=== PATIENT | female | born 1965 | race Caucasian/White ===

== ENCOUNTER 2021-06-23 12:02 | Emergency (ER) | payer SELFPAY ==
[~2021-06-23] VITALS: Ht 157 cm; Wt 41.0 kg
--- NOTE | 2021-06-23 12:13 | ED Neurological Problem ---
General Chief Complaint: Neuro-Stroke Like Symptoms Stated Complaint: STROKE SYMPTOMS Source: patient Exam Limitations: no limitations History of Present Illness Date Seen by Provider: Jun 23, 2021 Time Seen by Provider: 12:11 Initial Comments To ER with strokelike symptoms. She is brought to ER by her daughter from home where she lives in [place]. Patient has had ongoing headache and nausea for 1.5 months. She recently had EGD and colonoscopy at [facility]. This morning at 9 AM she got up and went to the bathroom and seemed normal. Daughter went back at about 10 AM and noticed her to have slurred speech. Patient reported to her daughter that she thinks she may have had a stroke. Timing/Duration: 1 week Severity: moderate Associated Symptoms: denies symptoms Allergies and Home Medications Allergies Coded Allergies: No Known Drug Allergies (Unverified , 06/23/21) Patient Home Medication List Home Medication List Reviewed: Yes Review of Systems Review of Systems Constitutional: see HPI; No chills, No fever Eyes: No Symptoms Reported Ears, Nose, Mouth, Throat: no symptoms reported Respiratory: no symptoms reported Cardiovascular: no symptoms reported Genitourinary: no symptoms reported Musculoskeletal: no symptoms reported Skin: no symptoms reported Psychiatric/Neurological: See HPI Endocrine: No Symptoms Reported Hematologic/Lymphatic: No Symptoms Reported Physical Exam Vital Signs Vital Signs - First Documented 06/23/21 12:03 Temp 36.1 Pulse 92 Resp 16 B/P (MAP) 164/89 (114) Pulse Ox 99 O2 Delivery Room Air Capillary Refill : Height, Weight, BMI Height: '" Weight: lbs. oz. kg; BMI Method: General Appearance: WD/WN, no apparent distress, thin (Chronically ill appears much older than stated age) HEENT: PERRL/EOMI, normal ENT inspection Neck: non-tender, full range of motion Respiratory: no respiratory distress, no accessory muscle use Cardiovascular: regular rate, rhythm, no murmur Gastrointestinal: normal bowel sounds, non tender, soft Extremities: normal range of motion, non-tender Neurologic/Psychiatric: alert, normal mood/affect, oriented x 3 Crainal Nerves: normal hearing, normal speech, PERRL Coordination/Gait: normal finger to nose Skin: normal color, warm/dry She makes poor eye contact but extraocular muscles are intact. She has more of a blank stare looking across the room and does not track me during conversation. However when asked to follow my finger she is able to do that. Stroke Onset of Symptoms Date of Onset of Symptoms: Jun 23, 2021 Time of Symptom Onset: 12:13 Onset of Symptoms: Yes Symptoms onset unknown: Yes NIH Stroke Scale Assessment Select: Initial Level of Consciousness: 0=Alert (0), Level of Consciousness- Questions: 0=Answers both month/age (0), LOC Commands: 0=Performs both tasks (0), Gaze: Normal (0), Visual Park: 0=No visual loss (0), Facial Movement (Facial Paresis): 2=Partial paralysis (2), Motor Function-Arms Right: 0=No drift (0), Motor Function-Arms Left: 0=No drift (0), Motor Function-Legs Right: 0=No drift (0), Motor Function-Legs Left: 0=No drift (0), Limb Ataxia: 0=Absent (0), Sensory: 0=Normal:no loss (0), Best Language: 0=No aphasia (0), Dysarthria: 1=Mild to moderate loss (1), Extinction & Inattention: 0=No abnormality (0), Total: 3 Progress/Results/Core Measures Results/Orders Lab Results Laboratory Tests Test 06/23/21 12:09 06/23/21 12:58 Range/Units White Blood Count 9.1 4.3-11.0 10^3/uL Red Blood Count 4.18 3.80-5.11 10^6/uL Hemoglobin 12.9 11.5-16.0 g/dL Hematocrit 39 35-52 % Mean Corpuscular Volume 92 80-99 fL Mean Corpuscular Hemoglobin 31 25-34 pg Mean Corpuscular Hemoglobin Concent 33 32-36 g/dL Red Cell Distribution Width 13.1 10.0-14.5 % Platelet Count 150 130-400 10^3/uL Mean Platelet Volume 9.5 9.0-12.2 fL Immature Granulocyte % (Auto) 0 % Neutrophils (%) (Auto) 65 42-75 % Lymphocytes (%) (Auto) 23 12-44 % Monocytes (%) (Auto) 8 0-12 % Eosinophils (%) (Auto) 3 0-10 % Basophils (%) (Auto) 1 0-10 % Neutrophils # (Auto) 5.9 1.8-7.8 10^3/uL Lymphocytes # (Auto) 2.1 1.0-4.0 10^3/uL Monocytes # (Auto) 0.7 0.0-1.0 10^3/uL Eosinophils # (Auto) 0.3 0.0-0.3 10^3/uL Basophils # (Auto) 0.1 0.0-0.1 10^3/uL Immature Granulocyte # (Auto) 0.0 0.0-0.1 10^3/uL Prothrombin Time 16.2 H 12.2-14.7 SEC INR Comment 1.3 0.8-1.4 Activated Partial Thromboplast Time 32 24-35 SEC D-Dimer > 20.00 H 0.00-0.49 UG/ML Sodium Level 144 135-145 MMOL/L Potassium Level 4.1 3.6-5.0 MMOL/L Chloride Level 103 98-107 MMOL/L Carbon Dioxide Level 28 21-32 MMOL/L Anion Gap 13 5-14 MMOL/L Blood Urea Nitrogen 13 7-18 MG/DL Creatinine 0.72 0.60-1.30 MG/DL Estimat Glomerular Filtration Rate 83 BUN/Creatinine Ratio 18 Glucose Level 94 70-105 MG/DL Calcium Level 9.4 8.5-10.1 MG/DL Corrected Calcium 9.2 8.5-10.1 MG/DL Total Bilirubin 0.6 0.1-1.0 MG/DL Aspartate Amino Transf (AST/SGOT) 22 5-34 U/L Alanine Aminotransferase (ALT/SGPT) 16 0-55 U/L Alkaline Phosphatase 74 40-136 U/L Troponin I 3.150 *H <0.028 NG/ML Total Protein 6.9 6.4-8.2 GM/DL Albumin 4.3 3.2-4.5 GM/DL Salicylates Level < 5.0 L 5.0-20.0 MG/DL Acetaminophen Level < 10 L 10-30 UG/ML Serum Alcohol < 10 <10 MG/DL Urine Color YELLOW Urine Clarity SL CLOUDY Urine pH 6.5 5-9 Urine Specific Greig <=1.005 1.016-1.022 Urine Protein NEGATIVE NEGATIVE Urine Glucose (UA) NEGATIVE NEGATIVE Urine Ketones NEGATIVE NEGATIVE Urine Nitrite NEGATIVE NEGATIVE Urine Bilirubin NEGATIVE NEGATIVE Urine Urobilinogen 0.2 < = 1.0 MG/DL Urine Leukocyte Esterase 2+ H NEGATIVE Urine RBC (Auto) TRACE-I NEGATIVE Urine RBC RARE /HPF Urine WBC 10-25 H /HPF Urine Squamous Epithelial Cells 2-5 /HPF Urine Crystals NONE /LPF Urine Bacteria NEGATIVE /HPF Urine Casts NONE /LPF Urine Mucus NEGATIVE /LPF Urine Trichomonas FEW H /HPF Urine Culture Indicated YES Urine Opiates Screen NEGATIVE NEGATIVE Urine Oxycodone Screen NEGATIVE NEGATIVE Urine Methadone Screen NEGATIVE NEGATIVE Urine Propoxyphene Screen NEGATIVE NEGATIVE Urine Barbiturates Screen NEGATIVE NEGATIVE Ur Tricyclic Antidepressants Screen NEGATIVE NEGATIVE Urine Phencyclidine Screen NEGATIVE NEGATIVE Urine Amphetamines Screen NEGATIVE NEGATIVE Urine Methamphetamines Screen NEGATIVE NEGATIVE Urine Benzodiazepines Screen NEGATIVE NEGATIVE Urine Cocaine Screen NEGATIVE NEGATIVE Urine Cannabinoids Screen POSITIVE H NEGATIVE My Orders Orders - SPENSER CM APRN Cbc With Automated Diff (06/23/21 12:14) Protime With Inr (06/23/21 12:14) Partial Thromboplastin Time (06/23/21 12:14) Comprehensive Metabolic Panel (06/23/21 12:14) Fibrin Degradation Products (06/23/21 12:14) Troponin I (06/23/21 12:14) Ua Culture If Indicated (06/23/21 12:14) Chest 1 View, Ap/Pa Only (06/23/21 12:14) Ekg Tracing (06/23/21 12:14) Nothing By Mouth (06/23/21 Lunch) Accucheck Stat ONCE (06/23/21 12:14) Ed Iv/Invasive Line Start (06/23/21 12:14) Ed Iv/Invasive Line Start (06/23/21 12:14) Vital Signs Stroke Patient Q15M (06/23/21 12:14) Ct Head Wo-R/O Stroke (06/23/21 12:14) O2 (06/23/21 12:14) Intake & Output 06,14,22 (06/23/21 12:14) Monitor-Rhythm Ecg Trace Only (06/23/21 12:14) Dysphagia Screening Tool (06/23/21 12:14) Post Thrombolytic Adminstratio (06/23/21 12:14) Lipid Panel (06/24/21 06:00) Ct Angio Head/Neck (06/23/21 12:14) Alcohol (06/23/21 12:14) Drug Screen Stat (Urine) (06/23/21 12:14) Salicylate (06/23/21 12:14) Acetaminophen (06/23/21 12:14) Iohexol Injection (Omnipaque 350 Mg/Ml 1 (06/23/21 12:45) Received Contrast (Hold Metformin- Contr (06/23/21 12:45) Ekg Tracing (06/23/21 12:43) Urine Culture (06/23/21 12:58) Fentanyl Inj (Sublimaze Injection) (06/23/21 14:00) Ondansetron Injection (Zofran Injectio (06/23/21 16:30) Medications Given in ED Current Medications Medications Dose Ordered Sig/Peace Route Start Time Stop Time Status Last Admin Dose Admin Fentanyl Citrate 25 mcg ONCE PRN IVP 06/23/21 14:00 06/23/21 14:10 25 MCG Ondansetron HCl 4 mg ONCE ONCE IVP 06/23/21 16:30 06/23/21 16:31 DC 06/23/21 16:31 4 MG Vital Signs/I&O 06/23/21 12:03 Temp 36.1 Pulse 92 Resp 16 B/P (MAP) 164/89 (114) Pulse Ox 99 O2 Delivery Room Air Diagnostic Imaging Diagonstic Imaging: CT Comments NAME: TAMIE BHANDARI [facility] REC#: [id number] PT STATUS: REG ER : 1965 PHYSICIAN: SPENSER CM APRN ADMIT DATE: 06/23/21/ER Draft Date of Exam:06/23/21 CT HEAD WO-R/O STROKE PROCEDURE: CT head wo r/o stroke. TECHNIQUE: Multiple contiguous axial images were obtained through the brain without the use of intravenous contrast. Auto Exposure Controls were utilized during the CT exam to meet ALARA standards for radiation dose reduction. INDICATION: Neurologic deficit. Slurred speech. Not acting right. COMPARISON: None. FINDINGS: Scattered regions of low attenuation, primarily in the white matter, greatest in the right parietal lobe, could also involve the left frontal and left occipital lobes. No evidence of intracranial hemorrhage. No hydrocephalus or extra-axial fluid collections. Osseous structures are intact. Paranasal sinuses and mastoids are unremarkable. IMPRESSION: Scattered regions of low attenuation in the supratentorial bilateral white matter are age indeterminate. Differential considerations would include but are not limited to ischemic change, demyelinating disease and intracranial metastases. The largest of these regions is in the right parietal lobe. No evidence of intracranial hemorrhage. Findings discussed with Spenser Cm APRN, at 12:50 PM on 06/23/2021. Dictated on workstation # [id number] Dict: 06/23/21 1249 Trans: 06/23/21 1316 [facility] [id number] Interpreted by: ANIA FRAGOSO MD Electronically signed by: NAME: TAMIE BHANDARI [facility] REC#: [id number] PT STATUS: REG ER : 1965 PHYSICIAN: SPENSER CM APRN ADMIT DATE: 06/23/21/ER Draft Date of Exam:06/23/21 CT ANGIO HEAD/NECK PROCEDURE: CT angiography of the head and CT angiography of the neck with and without contrast. TECHNIQUE: Contiguous noncontrast images were obtained from the skull base through the vertex. After intravenous contrast administration, helical CT angiography of the neck was performed. Source data was reformatted into 3D MIP projections. Delayed post contrast acquisition was also obtained. Auto Exposure Controls were utilized during the CT exam to meet ALARA standards for radiation dose reduction. INDICATION: Stroke. Slurred speech. Altered mental status. Left-sided weakness. COMPARISON: CT head without contrast also performed today. FINDINGS: There remains no evidence of a large hemorrhage or extra-axial fluid collection on the postcontrast imaging. There does appear to be some increased perfusion about the low-attenuation in the right parietal lobe. Additional low-attenuation changes scattered throughout the supratentorial white matter bilaterally remain age indeterminate. CTA demonstrates a conventional aortic arch. The basilar, bilateral vertebral, common carotid, internal carotid, anterior cerebral, middle cerebral and posterior cerebral arteries are widely patent without evidence of aneurysm or dissection. No large vessel occlusion. The dural venous sinuses are normally opacified. Normal alignment of the cervical spine. No acute osseous findings. The visualized paravertebral soft tissues are unremarkable. Emphysematous changes in the lung apices. There is possible mass or lymphadenopathy partially visualized in the upper left mediastinum measuring at least 2.1 cm. There is also lymphadenopathy deep to the left clavicle measuring up to 1.4 cm in short axis dimension. Lymph node in the left axilla is partially visualized but measures at least 2.0 cm in short axis dimension. IMPRESSION: 1. No high-grade narrowing, aneurysm or dissection involving the major arteries in the head and neck. 2. Partially visualized upper mediastinal mass or lymphadenopathy. There is also left axillary and supraclavicular lymphadenopathy. Findings are suspicious for a metastatic process. Findings discussed with Spenser Cm APRN, at 12:55 PM on 06/23/2021. Dictated on workstation # [id number] Dict: 06/23/21 1255 Trans: 06/23/21 1320 [facility] [id number] Interpreted by: ANIA FRAGOSO MD Electronically signed by: [facility] [id number] PT STATUS: REG ER : 1965 PHYSICIAN: SPENSER CM APRN ADMIT DATE: 06/23/21/ER Draft Date of Exam:06/23/21 CHEST 1 VIEW, AP/PA ONLY INDICATION: Stroke EXAMINATION: Chest 06/23/2021 FINDINGS: The heart is enlarged. Mild pulmonary vascular congestion is noted. Lungs clear. No infiltrates or effusions. No pneumothorax. IMPRESSION: 1. Cardiomegaly with mild pulmonary vascular congestion. Dictated on workstation # [id number] Dict: 06/23/21 1319 Trans: 06/23/211320 [facility] [id number] Interpreted by: NEO TAYLOR MD Electronically signed by: Departure Communication (Admissions) Family Conversation [facility] [id number] PT STATUS: REG ER : 1965 PHYSICIAN: SPENSER CM APRN ADMIT DATE: 06/23/21/ER Draft Date of Exam:06/23/21 CHEST 1 VIEW, AP/PA ONLY INDICATION: Stroke EXAMINATION: Chest 06/23/2021 FINDINGS: The heart is enlarged. Mild pulmonary vascular congestion is noted. Lungs clear. No infiltrates or effusions. No pneumothorax. IMPRESSION: 1. Cardiomegaly with mild pulmonary vascular congestion. Dictated on workstation # [id number] Dict: 06/23/21 1319 Trans: 06/23/21 1321 [facility] [id number] Interpreted by: NEO TAYLOR MD Electronically signed by: 1320-Discussed with Dr Hernández from stroke center, agree with withholding TPA given concern for this being metastatic disease rather than ischemia and NIH of only 3. Her troponin is elevated at 3, she does not have chest pain or shortness of breath, her EKG does not have any ST segment changes. Her EKG shows sinus rhythm 83, no ST segment changes no ectopy normal intervals there is T wave inversion in lead III only. No chest pain no shortness of breath. 1509-Dr. Mason James at the [facility] has accepted the patient. Awaiting bed assignment. I have spoken with [facility], [facility] out of [facility]. None of these have capability to transfer the patient. Impression Primary Impression: intracranial metastatic disease Disposition: XFER SHT-TRM HOSP Condition: Stable Transfer Transfer Reason: Exceeds level of care Time Spoke to Accepting Phy: 14:30 SPENSER CM [employer] PROJECT ENGINEER Jun 23, 2021 12:13
[2021-06-23 12:23] LABS: BASOPHILS # (AUTO) 0.1 10^3/uL (0.0-0.1); BASOPHILS % (AUTO) 1 % (0-10); EOSINOPHILS # (AUTO) 0.3 10^3/uL (0.0-0.3); EOSINOPHILS % (AUTO) 3 % (0-10); HEMATOCRIT 39 % (35-52); HEMOGLOBIN 12.9 g/dL (11.5-16.0); LYMPHOCYTES # (AUTO) 2.1 10^3/uL (1.0-4.0); LYMPHOCYTES % (AUTO) 23 % (12-44); MEAN CORPUSCULAR HEMOGLOBIN 31 pg (25-34); MEAN CORPUSCULAR HGB CONC 33 g/dL (32-36); MEAN CORPUSCULAR VOLUME 92 fL (80-99); MEAN PLATELET VOLUME 9.5 fL (9.0-12.2); MONOCYTES # (AUTO) 0.7 10^3/uL (0.0-1.0); MONOCYTES % (AUTO) 8 % (0-12); NEUTROPHILS # (AUTO) 5.9 10^3/uL (1.8-7.8); NEUTROPHILS % (AUTO) 65 % (42-75); PLATELET COUNT 150 10^3/uL (130-400); WHITE BLOOD COUNT 9.1 10^3/uL (4.3-11.0)
[2021-06-23 12:26] LABS: ALBUMIN 4.3 GM/DL (3.2-4.5); CHLORIDE 103 MMOL/L (98-107); POTASSIUM 4.1 MMOL/L (3.6-5.0); SODIUM 144 MMOL/L (135-145)
[2021-06-23 12:27] LABS: CALCIUM 9.4 MG/DL (8.5-10.1)
[2021-06-23 12:28] LABS: GLUCOSE 94 MG/DL (70-105)
[2021-06-23 12:29] LABS: CARBON DIOXIDE 28 MMOL/L (21-32); TOTAL PROTEIN 6.9 GM/DL (6.4-8.2)
[2021-06-23 12:30] LABS: BILIRUBIN,TOTAL 0.6 MG/DL (0.1-1.0)
[2021-06-23 12:32] LABS: ALKALINE PHOSPHATASE 74 U/L (40-136); CREATININE SERUM 0.72 MG/DL (0.60-1.30); GFR ESTIMATED 83
[2021-06-23 12:33] LABS: ACETAMINOPHEN < 10 UG/ML (10-30)
[2021-06-23 12:34] LABS: BUN/CREATININE RATIO 18
[2021-06-23 12:35] LABS: ALANINE AMINOTRANSFERASE 16 U/L (0-55); SALICYLATE < 5.0 MG/DL (5.0-20.0)
[2021-06-23 12:44] LABS: FIBRIN DEGRADATION PRODUCTS > 20.00 UG/ML (0.00-0.49); INR 1.3 (0.8-1.4); PARTIAL THROMBOPLASTIN TIME 32 SEC (24-35); PROTHROMBIN TIME PATIENT 16.2 SEC (12.2-14.7)
[2021-06-23] MEDS ORDERED: IOHEXOL 350 MG/ML 100 ML (OMNIPAQUE 350) VIAL IV ONE (12:45)
[2021-06-23] MEDS ORDERED: HOLD METFORMIN - RECEIVED CONTRAST 20 ML VIAL IV SCH (12:45)
--- NOTE | 2021-06-23 13:16 | Diagnostic Imaging Report ---
PROCEDURE: CT head wo r/o stroke. TECHNIQUE: Multiple contiguous axial images were obtained through the brain without the use of intravenous contrast. Auto Exposure Controls were utilized during the CT exam to meet ALARA standards for radiation dose reduction. INDICATION: Neurologic deficit. Slurred speech. Not acting right. COMPARISON: None. FINDINGS: Scattered regions of low attenuation, primarily in the white matter, greatest in the right parietal lobe, could also involve the left frontal and left occipital lobes. No evidence of intracranial hemorrhage. No hydrocephalus or extra-axial fluid collections. Osseous structures are intact. Paranasal sinuses and mastoids are unremarkable. IMPRESSION: Scattered regions of low attenuation in the supratentorial bilateral white matter are age indeterminate. Differential considerations would include but are not limited to ischemic change, demyelinating disease and intracranial metastases. The largest of these regions is in the right parietal lobe. No evidence of intracranial hemorrhage. Findings discussed with Waylon Cm APRN, at 12:50 PM on 06/23/2021. Dictated by: Dictated on workstation # [id number]
[2021-06-23 13:19] LABS: BILIRUBIN,URINE NEGATIVE (NEGATIVE); CLARITY,URINE SL CLOUDY; COLOR,URINE YELLOW; GLUCOSE, URINE (UA) NEGATIVE (NEGATIVE); KETONES,URINE NEGATIVE (NEGATIVE); LEUKOCYTE ESTERASE ,URINE 2+ (NEGATIVE); NITRITE,URINE NEGATIVE (NEGATIVE); PH,URINE 6.5 (5-9); PROTEIN,URINE NEGATIVE (NEGATIVE)
--- NOTE | 2021-06-23 13:20 | Diagnostic Imaging Report ---
PROCEDURE: CT angiography of the head and CT angiography of the neck with and without contrast. TECHNIQUE: Contiguous noncontrast images were obtained from the skull base through the vertex. After intravenous contrast administration, helical CT angiography of the neck was performed. Source data was reformatted into 3D MIP projections. Delayed post contrast acquisition was also obtained. Auto Exposure Controls were utilized during the CT exam to meet ALARA standards for radiation dose reduction. INDICATION: Stroke. Slurred speech. Altered mental status. Left-sided weakness. COMPARISON: CT head without contrast also performed today. FINDINGS: There remains no evidence of a large hemorrhage or extra-axial fluid collection on the postcontrast imaging. There does appear to be some increased perfusion about the low-attenuation in the right parietal lobe. Additional low-attenuation changes scattered throughout the supratentorial white matter bilaterally remain age indeterminate. CTA demonstrates a conventional aortic arch. The basilar, bilateral vertebral, common carotid, internal carotid, anterior cerebral, middle cerebral and posterior cerebral arteries are widely patent without evidence of aneurysm or dissection. No large vessel occlusion. The dural venous sinuses are normally opacified. Normal alignment of the cervical spine. No acute osseous findings. The visualized paravertebral soft tissues are unremarkable. Emphysematous changes in the lung apices. There is possible mass or lymphadenopathy partially visualized in the upper left mediastinum measuring at least 2.1 cm. There is also lymphadenopathy deep to the left clavicle measuring up to 1.4 cm in short axis dimension. Lymph node in the left axilla is partially visualized but measures at least 2.0 cm in short axis dimension. IMPRESSION: 1. No high-grade narrowing, aneurysm or dissection involving the major arteries in the head and neck. 2. Partially visualized upper mediastinal mass or lymphadenopathy. There is also left axillary and supraclavicular lymphadenopathy. Findings are suspicious for a metastatic process. Findings discussed with Waylon Cm APRN, at 12:55 PM on 06/23/2021. Dictated by: Dictated on workstation # [id number]
--- NOTE | 2021-06-23 13:21 | Diagnostic Imaging Report ---
INDICATION: Stroke EXAMINATION: Chest 06/23/2021 FINDINGS: The heart is enlarged. Mild pulmonary vascular congestion is noted. Lungs clear. No infiltrates or effusions. No pneumothorax. IMPRESSION: 1. Cardiomegaly with mild pulmonary vascular congestion. Dictated by: Dictated on workstation # [id number]
[2021-06-23 13:29] LABS: RBC,URINE RARE /HPF
[2021-06-23 13:30] LABS: BACTERIA,URINE NEGATIVE /HPF; TRICHOMONAS,URINE FEW /HPF
[2021-06-23 13:33] LABS: AMPHETAMINE SCREEN, URINE NEGATIVE (NEGATIVE); BARBITURATE SCREEN URINE NEGATIVE (NEGATIVE); BENZODIAZEPINES SCREEN URINE NEGATIVE (NEGATIVE); CANNABINOID SCREEN, URINE POSITIVE (NEGATIVE); COCAINE SCREEN URINE NEGATIVE (NEGATIVE); METHADONE STAT NEGATIVE (NEGATIVE); METHAMPHETAMINE SCREEN URINE S NEGATIVE (NEGATIVE); OPIATE SCREEN URINE NEGATIVE (NEGATIVE); OXYCODONE STAT NEGATIVE (NEGATIVE); PROPOXYPHENE STAT NEGATIVE (NEGATIVE); TRICYCLIC ANTIDEPRESSANTS SCRE NEGATIVE (NEGATIVE)
[2021-06-23] MEDS: fentaNYL INJ 100 MCG/2 ML AMP IVP PRN ×2 (14:10→17:47)
[2021-06-23] MEDS ORDERED: ONDANSETRON 4 MG/2 ML (SDV) Z0FRAN IVP ONE ×2 (16:30→17:45)
[2021-06-23] MEDS ORDERED: fentaNYL INJ 100 MCG/2 ML AMP IVP PRN (17:45)
[2021-06-23 18:44] VITALS: BP 131/78
--- OUTSIDE RECORDS SUMMARY | 2021-06-25 07:26 | XMS REPORT | Encounter Summary ---
Author Author [facility] Address Unknown Phone Unavailable Care Team Providers Care Blowing Weasand Name Role Phone No Pcp, Na PCP Unavailable Encounter Details Care Team Description Date Type Department 06/23/2021 Travel Social History Date Tobacco Use Types Packs/Day Years Used Current Every Day Smoker Cigarettes 1 15 Smokeless Tobacco: Never Used Drinks/Week oz/Week Comments Alcohol Use 3 Cans of beer 3.0 normally drinks 1 beer/day, but has not consumed any in 3-4 days Yes Sex Assigned at Date Recorded Not on file Date Recorded COVID-19 Exposure Response 06/23/2021 3:07 PM CDT In the last month, have you been in contact with No / Unsure someone who was confirmed or suspected to have Coronavirus / COVID-19? documented as of this encounter Plan of Treatment Not on filedocumented as of this encounter Goals Goal Patient Associated Recent Progress Patient-Stat Aut hor Goal Type Problems ed? [facility] No Francia Vazquez, RN documented as of this encounter Visit Diagnoses Not on filedocumented in this encounter Additional Health Concerns Assessment Noted Time A fall risk assessment has been completed for the pat ient 06/23/2021 7:54 PM CDT documented as of this encounter
--- OUTSIDE RECORDS SUMMARY | 2021-06-25 07:26 | XMS REPORT | Clinical Summary ---
Author Author [facility] Organization [facility] Address Unknown Phone Unavailable Care Team Providers Care Kettle Girl Name Role Phone No Pcp, Na PCP Unavailable Source Comments Some departments are not documenting in the electronic medical record. If you d o not see the information that you expected, contact Release of Information in [facility] [employer] Information Management department at [phone] for further assistan ce in locating additional records.[facility] Allergies No Known Active Allergies Medications No known medications Active Problems Problem Noted Date Severe malnutrition 06/24/2021 Metastatic cancer to brain 06/23/2021 Encounters Care Team Description Date Type Specialty Mason James MD Mohamad Alahmad, MD Julio Rendon Sidra, MD Digiacomo, Nola Thomason MD Metastatic cancer to brain (HCC) 06/23/2021 Hospital Oncology Encounter Arrived 06/23/2021 Hospital Radiology Encounter Arrived 06/23/2021 Hospital Radiology Encounter 06/23/2021 Travel from Last 3 Months Medical History Medical History Date Comments Smoker Family History Medical History Relation Name Comments Cancer-Lung Mother Relation Name Status Comments Mother Social History Date Tobacco Use Types Packs/Day Years Used Current Every Day Smoker Cigarettes 1 15 Smokeless Tobacco: Never Used Tobacco Cessation: Ready to Quit: Yes; C ounseling Given: Yes Drinks/Week oz/Week Comments Alcohol Use 3 Cans [...] or suspected to have Coronavirus / COVID-19? Last Filed Vital Signs Reading Time Taken Comments Vital Sign 134/81 06/25/2021 7:22 AM CDT Blood Pressure 94 06/25/2021 7:22 AM CDT Pulse 36.9 C (98.4 F) 06/25/2021 7:22 AM CDT Temperature - - Respiratory Rate 95% 06/25/2021 7:22 AM CDT Oxygen Saturation - - Inhaled Oxygen Concentration 49 kg (108 lb 0.4 oz) 06/23/2021 7:54 PM CDT Weight 157.5 cm (5' 2") 06/23/2021 7:54 PM CDT Height 19.76 06/23/2021 7:54 PM CDT Body Mass Index Plan of Treatment Health Maintenance Due Date Last Done Comments DTAP/TDAP VACCINES (1 - 1981 Tdap) PHYSICAL (COMPREHENSIVE) 1981 EXAM CERVICAL CANCER SCREENING 1984 BREAST CANCER SCREENING 2003 COLORECTAL CANCER 2013 SCREENING SHINGLES RECOMBINANT 2013 VACCINE (1 of 2) INFLUENZA VACCINE 08/17/2021 HEPATITIS C SCREENING Completed 06/23/2021 HIV SCREENING Completed 06/23/2021 Goals Goal Patient Associated Recent Progress Patient-Stat Aut hor Goal Type Problems ed? [facility] Francia Marinelli RN Procedures * The patient is currently admitted. The information in this section might not be complete until the patient is discharged. Comments Procedure Name Priority Date/Time Associated Diag nosis POC GLUCOSE 06/25/2021 7:22 AM CDT POC GLUCOSE 06/25/2021 6:57 AM CDT MAGNESIUM 06/25/2021 2:00 AM CDT COMPREHENSIVE METABOLIC 06/25/2021 PANEL 2:00 AM CDT TROPONIN-I Routine 06/25/2021 2:00 AM CDT HC TROPONIN-I Routine 06/24/2021 5:35 PM CDT TROPONIN-I Routine 06/24/2021 11:11 AM CDT HC TROPONIN-I Routine 06/24/2021 9:47 AM CDT URINALYSIS, MICROSCOPIC Routine 06/24/2021 5:29 AM CDT HC URINALYSIS, AUTO W Routine 06/24/2021 MICRO 5:29 AM CDT HC PHENCYCLIDINES; QUAL Routine 06/24/2021 5:29 AM CDT HC OPIATES; QUAL Routine 06/24/2021 5:29 AM CDT HC COCAINE; QUAL Routine 06/24/2021 5:29 AM CDT HC CANNABINOIDS; QUAL Routine 06/24/2021 5:29 AM CDT HC BENZODIAZEPINES, QUAL Routine 06/24/2021 5:29 AM CDT HC BARBITURATES Routine 06/24/2021 5:29 AM CDT HC AMPHETAMINES QUAL, Routine 06/24/2021 URINE 5:29 AM CDT HC CALCIUM IONIZED Specimen 06/24/2021 in Lab 5:20 AM CDT HC FIBRINOGEN Routine 06/24/2021 4:47 AM CDT TROPONIN-I Routine 06/24/2021 4:47 AM CDT HC MAGNESIUM Routine 06/24/2021 4:47 AM CDT HC COMPREHENSIVE Routine 06/24/2021 METABOLIC PANEL 4:47 AM CDT HC CBC W/ AUTOMATED DIFF Routine 06/24/2021 4:47 AM CDT CTA CHEST WO/W STAT 06/24/2021 CONTRAST+POST P 1:[address] ABD/PELV W CONTRAST AGNES 06/24/2021 1:19 AM CDT CULTURE-BLOOD STAT 06/24/2021 W/SENSITIVITY 12:52 AM CDT CULTURE-BLOOD STAT 06/24/2021 W/SENSITIVITY 12:43 AM CDT MRI HEAD WO/W CONTRAST STAT 06/23/2021 10:49 PM CDT HC PTH 06/23/2021 9:58 PM CDT HC PROLCALCITONIN (PROCA) 06/23/2021 9:58 PM CDT HC LIPASE 06/23/2021 9:58 PM CDT HC LD(LDH;LACTIC 06/23/2021 DEHYDROGENASE) 9:58 PM CDT HC LACTIC ACID(LACTATE) 06/23/2021 9:58 PM CDT HC HIV 1/2 SHOLA AG SCREEN 06/23/2021 9:58 PM CDT HC C-REACTIVE PROTEIN 06/23/2021 (CRP) 9:58 PM CDT HC BETA HYDROXYBUTYRATE 06/23/2021 9:58 PM CDT HC ACUTE HEPATITIS PANEL 06/23/2021 9:58 PM CDT C4 COMPLEMENT 4 STAT 06/23/2021 9:58 PM CDT HC C3(COMPLEMENT 3) STAT 06/23/2021 9:58 PM CDT HC VITAMIN B12 STAT 06/23/2021 9:58 PM CDT HC D-DIMER STAT 06/23/2021 9:58 PM CDT HC FIBRINOGEN STAT 06/23/2021 9:58 PM CDT HC PHOSPHOROUS, SERUM STAT 06/23/2021 9:58 PM CDT HC HEMOGLOBIN A1C STAT 06/23/2021 9:58 PM CDT HC STAT 06/23/2021 LIPID-5:CHOL/TRG/HDL/LDL+ 9:58 PM CDT VLDL HC TSH SCREEN STAT 06/23/2021 9:58 PM CDT HC TROPONIN-I STAT 06/23/2021 9:58 PM CDT HC COMPREHENSIVE STAT 06/23/2021 METABOLIC PANEL 9:58 PM CDT HC PTT(APTT) STAT 06/23/2021 9:58 PM CDT HC PT(INR) STAT 06/23/2021 9:58 PM CDT HC CBC W/ AUTOMATED DIFF STAT 06/23/2021 9:58 PM CDT HC MRSA PNEUMONIA SCREEN Routine 06/23/2021 9:15 PM CDT COVID-19 (SARS-COV-2) PCR STAT 06/23/2021 9:15 PM CDT CTA HEAD EXTERNAL IMAGING Routine 06/23/2021 2:[address] HEAD EXTERNAL IMAGING Routine 06/23/2021 2:38 PM CDT TELEMETRY STRIPS-SCAN 06/23/2021 12:00 AM CDT TELEMETRY STRIPS-SCAN 06/23/2021 12:00 AM CDT TELEMETRY STRIPS-SCAN 06/23/2021 12:00 AM CDT TELEMETRY STRIPS-SCAN 06/23/2021 12:00 AM CDT TELEMETRY STRIPS-SCAN 06/23/2021 12:00 AM CDT TELEMETRY STRIPS-SCAN 06/23/2021 12:00 AM CDT TELEMETRY STRIPS-SCAN 06/23/2021 12:00 AM CDT from Last 3 Months Results * POC GLUCOSE (06/25/2021 7:22 AM CDT) Only the most recent of 2 results within the time period is included. Glucose, POC 129 (H) 70 - 100 MG/DL [facility] Specimen Performing Organization Address City/[facility]/ZIP Code P chloé Number [facility] [address] [place] [address] * TROPONIN-I (06/25/2021 2:00 AM CDT) Only the most recent of 6 results within the time period is included. Troponin-I 1.02 (H) 0.0 - 0.05 NG/ML [facility] Specimen Blood Performing Organization Address City/[facility] P chloé Number [facility] [address] [place] [address] * MAGNESIUM (06/25/2021 2:00 AM CDT) Only the most recent of 2 results within the time period is included. Magnesium 2.0 1.6 - 2.6 mg/dL [facility] Specimen Performing Organization Address [facility] P chloé Number [facility] [address] [place] [address] * COMPREHENSIVE METABOLIC PANEL (06/25/2021 2:00 AM CDT) Only the most recent of 3 results within the time period is included. Sodium 138 137 - 147 MMOL/L [facility] Potassium 4.2 3.5 - 5.1 MMOL/L [facility] Chloride 100 98 - 110 MMOL/L [facility] Glucose 55 (L) 70 - 100 MG/DL [facility] Blood Urea 19 7 - 25 MG/DL [facility] Nitrogen Creatinine 0.67 0.4 - 1.00 MG/DL [facility] Calcium 9.1 8.5 - 10.6 MG/DL [facility] Total Protein 6.5 6.0 - 8.0 G/DL [facility] Total Bilirubin 1.4 (H) 0.3 - 1.2 MG/DL [facility] Albumin 4.0 3.5 - 5.0 G/DL [facility] Alk Phosphatase 65 25 - 110 U/L [facility] AST (SGOT) 25 7 - 40 U/L [facility] CO2 23 21 - 30 MMOL/L [facility] ALT (SGPT) 12 7 - 56 U/L [facility] Anion Gap 15 (H) 3 - 12 [facility] eGFR Non >60 >60 mL/min [facility] Comment: [place] The eGFR is not validated f or use in drug dosing adjustments. Continue to use estimated creatinine clearance per dosing reference text. Please contact the Clinical Pharmacist for questions. eGFR >60 >60 mL/min [facility] [place] Comment: The eGFR is not validated for use in drug dosing adjustments. Continue to use estimated creatinine clearance per dosing reference text. Please contact the Clinical Pharmacist for questions. Specimen Performing Organization Address [facility] P chloé Number [facility] [address] [place] [address] * URINALYSIS, MICROSCOPIC (06/24/2021 5:29 AM CDT) WBCs,UA 20-50 0 - 2 /HPF [facility] RBCs,UA PACKED 0 - 3 /HPF [facility] MucousUA TRACE [facility] Squamous 0-2 0 - 5 [facility] Epithelial Cells Specimen Urine - Urine Performing Organization Address [facility] P chloé Number [facility] [address] [place] [address] * URINALYSIS DIPSTICK (06/24/2021 5:29 AM CDT) Color,UA YELLOW [facility] Turbidity,UA 1+ (A) CLEAR-CLEAR [facility] Specific >1.050 (H) 1.003 - 1.035 [facility] [place]-Urine pH,UA 6.0 5.0 - 8.0 [facility] Protein,UA 1+ (A) NEG-NEG [facility] Glucose,UA NEG NEG-NEG [facility] Ketones,UA NEG NEG-NEG [facility] Bilirubin,UA NEG NEG-NEG [facility] Blood,UA 3+ (A) NEG-NEG [facility] Urobilinogen,UA INCREASED (A) NORM-NORMAL [facility] Nitrite,UA NEG NEG-NEG [facility] Leukocytes,UA 3+ (A) NEG-NEG [facility] Urine Ascorbic NEG NEG-NEG [facility] Acid, UA Specimen Urine - Urine Performing Organization Address [facility]/RUST Code P chloé Number [facility] [address] [place] [address] * PHENCYCLIDINES-URINE RANDOM (06/24/2021 5:29 AM CDT) Phencyclidine NEG NEG-NEG [facility]IN [facility] (PCP) Comment: RESULTS WERE OBTAINED BY IMMUNOASSAY AND ARE PRESUMPTIVE ONLY. POSITIVE INDICATES THE PRESENCE OF SUBSTANCE WITH CHARACTERISTICS SIMILAR TO DRUG-DRUG CLASS OR METABOLITE IN CONC. EQUAL TO OR EXCEEDING VALUES LISTED. PHENCYCLIDINE (PCP) 25 NG/ML Specimen Urine - Urine Performing Organization Address [facility] P chloé Number MAIN LAB [address] [place] [address] * OPIATES-URINE RANDOM (06/24/2021 5:29 AM CDT) Opiates-Urine NEG NEG-NEG [facility]IN LAB Comment: RESULTS WERE OBTAINED BY IMMUNOASSAY AND ARE PRESUMPTIVE ONLY. POSITIVE INDICATES THE PRESENCE OF SUBSTANCE WITH CHARACTERISTICS SIMILAR TO DRUG-DRUG CLASS OR METABOLITE IN CONC. EQUAL TO OR EXCEEDING VALUES LISTED. OPIATES 2000 NG/ML Specimen Urine - Urine Performing Organization Address [facility] P chloé Number MAIN LAB [address] [place] [address] * COCAINE-URINE RANDOM (06/24/2021 5:29 AM CDT) Cocaine-Urine NEG NEG-NEG [facility]IN LAB Comment: RESULTS WERE OBTAINED BY IMMUNOASSAY AND ARE PRESUMPTIVE ONLY. POSITIVE INDICATES THE PRESENCE OF SUBSTANCE WITH CHARACTERISTICS SIMILAR TO DRUG-DRUG CLASS OR METABOLITE IN CONC. EQUAL TO OR EXCEEDING VALUES LISTED. COCAINE 300 NG/ML Specimen Urine - Urine Performing Organization Address [facility] P chloé Number MAIN LAB [address] [place] [address] * CANNABINOIDS-URINE RANDOM (06/24/2021 5:29 AM CDT) THC POS (A) NEG-NEG MAIN LAB Comment: RESULTS WERE OBTAINED BY IMMUNOASSAY AND ARE PRESUMPTIVE ONLY. POSITIVE INDICATES THE PRESENCE OF SUBSTANCE WITH CHARACTERISTICS SIMILAR TO DRUG-DRUG CLASS OR METABOLITE IN CONC. EQUAL TO OR EXCEEDING VALUES LISTED. CANNABINOIDS 50 NG/ML Specimen Urine - Urine Performing Organization Address [facility] P chloé Number MAIN LAB [address] [place] [address] * BENZODIAZEPINES-URINE RANDOM (06/24/2021 5:29 AM CDT) Benzodiazepines NEG NEG-NEG MAIN LAB Comment: RESULTS WERE OBTAINED BY IMMUNOASSAY AND ARE PRESUMPTIVE ONLY. POSITIVE INDICATES THE PRESENCE OF SUBSTANCE WITH CHARACTERISTICS SIMILAR TO DRUG-DRUG CLASS OR METABOLITE IN CONC. EQUAL TO OR EXCEEDING VALUES LISTED. BENZODIAZEPINES 200 NG/ML Specimen Urine - Urine Performing Organization Address City/[facility]UST Code P chloé Number MAIN LAB [address] [place] [address] * BARBITURATES-URINE RANDOM (06/24/2021 5:29 AM CDT) Barbiturates,Ur NEG NEG-NEG [facility] ine Comment: RESULTS WERE OBTAINED BY IMMUNOASSAY AND ARE PRESUMPTIVE ONLY. POSITIVE INDICATES THE PRESENCE OF SUBSTANCE WITH CHARACTERISTICS SIMILAR TO DRUG-DRUG CLASS OR METABOLITE IN CONC. EQUAL TO OR EXCEEDING VALUES LISTED. BARBITURATES 200 NG/ML Specimen Urine - Urine Performing Organization Address [facility] P chloé Number MAIN LAB [address] [place] [address] * AMPHETAMINES-URINE RANDOM (06/24/2021 5:29 AM CDT) Amphetamines NEG NEG-NEG MAIN LAB Comment: RESULTS WERE OBTAINED BY IMMUNOASSAY AND ARE PRESUMPTIVE ONLY. POSITIVE INDICATES THE PRESENCE OF SUBSTANCE WITH CHARACTERISTICS SIMILAR TO DRUG-DRUG CLASS OR METABOLITE IN CONC. EQUAL TO OR EXCEEDING VALUES LISTED. AMPHETAMINES 1000 NG/ML Specimen Urine - Urine Performing Organization Address City/[facility] P chloé Number MAIN LAB [address] [place] [address] * IONIZED CALCIUM (06/24/2021 5:20 AM CDT) Ionized Calcium 1.19 1.0 - 1.3 MMOL/L [facility]IN LAB Specimen Blood Performing Organization Address City/[facility] P chloé Number MAIN LAB [address] [place] [address] * FIBRINOGEN (06/24/2021 4:47 AM CDT) Only the most recent of 2 results within the time period is included. Fibrinogen 95 (LL) 200 - 400 MG/DL [facility]IN LAB Comment: CRITICAL VALUE CALLED TO AND READ BACK BY/TIME/TECH LASHAY DOMINGUEZ at 06/24/2021 05:48:38 by [id number] Specimen Blood Performing Organization Address City/[facility]/ZIP Code P chloé Number [facility] [address] [place] [address] * CBC AND DIFF (06/24/2021 4:47 AM CDT) Only the most recent of 2 results within the time period is included. White Blood 9.1 4.5 - 11.0 K/UL [facility] Cells RBC 3.93 (L) 4.0 - 5.0 M/UL [facility] Hemoglobin 12.1 12.0 - 15.0 GM/DL [facility] Hematocrit 36.0 36 - 45 % [facility] MCV 91.5 80 - 100 FL [facility] MCH 30.7 26 - 34 PG [facility] MCHC 33.5 32.0 - 36.0 G/DL [facility] RDW 13.3 11 - 15 % [facility] Platelet Count 152 150 - 400 K/UL [facility] MPV 7.4 7 - 11 FL [facility] Neutrophils 66 41 - 77 % [facility] Lymphocytes 24 24 - 44 % [facility] Monocytes 8 4 - 12 % [facility] Eosinophils 2 0 - 5 % [facility] Basophils 0 0 - 2 % [facility] Absolute 5.93 1.8 - 7.0 K/UL [facility] Neutrophil Count Absolute Lymph 2.18 1.0 - 4.8 K/UL [facility] Count Absolute 0.76 0 - 0.80 K/UL [facility] Monocyte Count Absolute 0.22 0 - 0.45 K/UL [facility] Eosinophil Count Absolute 0.04 0 - 0.20 K/UL [facility] Basophil Count Specimen Performing Organization Address City/[facility]/ZIP Code P chloé Number [facility] [address] [place] [address] * CT ABD/PELV W CONTRAST (06/24/2021 1:19 AM CDT) Specimen Impressions Performed At CHEST: [facility] RESULTS 1. No evidence of acute pulmonary emb olism. Enlargement of the main pulmonary trunk which can be seen with pulmonary hypertension. 2. Moderate left axillary, mediastina l, and left hilar lymphadenopathy. Primary considerations include metastat ic disease from unknown primary and lymphoma. Granulomatous disease such as sarcoidosis is an additional consideration, although, considered les s likely. PET/CT and/or biopsy recommended. The left axillary lymph no ely would be amenable to percutaneous biopsy. 3. Mild cardiomegaly with small peric ardial effusion which may be malignant. 4. Scattered tiny noncalcified pulmon stacy nodules, some of which are ill-defined, which are indeterminate an d could represent noncalcified granulomas, nodular scars, infectious/i nflammatory nodules, and/or metastases. No dominant pulmonary mass is identifie d. Follow up CT chest in 3 months recommended for reevaluation. 5. Mild emphysema. Bronchial wall thi ckening with scattered peripheral mucous plugging suggestive of bronchitis, with associated areas of right middle and left lower lobe subsegmental atelectasi s. ABDOMEN AND PELVIS: 1. Patchy bilateral linear renal lauryn ical hypoenhancement which can be seen with pyelonephritis and acute tubular n ecrosis. Clinical and laboratory correlation recommended. 2. No abdominopelvic lymphadenopathy, ascites, or bowel obstruction. Normal appendix. 3. At L4-L5, degenerative changes inc luding probable moderate-sized disc protrusion result in at least moderate central spinal stenosis. Follow-up MRI could be obtained for further evaluatio n as clinically indicated. 4. Moderate distal colonic diverticul osis. #FOLLOW Finalized by Seb Castano M.D. on 021 1:47 AM. Dictated by Seb Castano M.D. on 06/24/2021 1:26 AM. Narrative Performed At CTA CHEST, CT ABDOMEN AND PELVIS [facility] RESULTS Clinical Indication: Epigastric abdom inal pain, brain lesions, d-dimer elevated Technique: Multiple contiguous axial im ages were obtained through the chest, abdomen and pelvis following the admini stration of IV contrast material. Post processing coronal and sagittal reconst ruction images were made from the axial images. Image post-processing was obtai rebecca. IV contrast: Yes Bowel contrast: None Comparison: Same-day MRI brain CHEST FINDINGS: Lower Neck: No definite lower cervical lymphadenopathy, although, artifact limits evaluation. Axilla, Mediastinum and Bhavya: Moderate left axillary, mediastinal, and left hilar lymphadenopathy. Software Client Architect p revascular mediastinal lymph node measures 3.5 x 3 cm (series 2 image 20) . Calcified left hilar granulomas. Heart and Great Vessels: Mild cardiomeg aroldo with small pericardial effusion. Mild coronary artery calcification. Thoracic aorta is normal in caliber with mild mixed atherosclerosis. Enlargement of t he main pulmonary trunk measuring 3.3 cm in diameter. Mild narrowing of central left pulmonary arteries due to adenopathy. No pulmonary artery filling defects are identified. Airway, Lungs and Pleura: Evaluation of detail limited by motion. Minimal central tracheobronchial secretions. Le ft hilar bronchial narrowing by adenopathy, greatest in the left upper lobe, without occlusion. Central bronchial wall thickening. Scattered pe ripheral and partial opacification, greatest in the right middle and left l ower lobes with associated areas of linear subsegmental atelectasis. Mild u pper lobe predominant emphysema with scattered areas of scarring. Subtle mos aic attenuation. Scattered tiny noncalcified nodular opacities in both lungs (such as series 301 image 54 in the left upper lobe). A few of the nodular opacities are somewhat ill-defined (such as series 3 on image 73 in the right up per lobe). No pulmonary mass. No pleural effusion or pneumothorax. Chest Wall and Osseous Structures: Mild rightward thoracic curvature. Thoracic spondylosis. No aggressive osseous lesi ons are identified. ABDOMEN AND PELVIS FINDINGS: Liver and Biliary system: The liver is normal in size. No focal hepatic lesion is identified. Dependent hyperdensity i n the gallbladder, likely vicarious excretion of previously administered co ntrast. No significant biliary ductal dilatation. Major portal veins are trent nt. Spleen: Unremarkable. Adrenal Glands and Kidneys: Adrenal gla nds are unremarkable. Right renal cyst and a few additional small renal hypode nsities which are too small to characterize. Linear areas of cortical hypoenhancement within both kidneys. Excreted contrast in the renal collecti ng systems consistent with outside CTA. No hydronephrosis. Pancreas and Retroperitoneum: Pancreas is unremarkable. No retroperitoneal adenopathy. Aorta and Major Vessels: Abdominal aort a and iliac arteries are normal in caliber with mild mixed atherosclerosis . Bowel, Mesentery and Peritoneal space: Evaluation is limited due to paucity of intraperitoneal fat. Prominent duodenal diverticulum. Bowel loops are normal in caliber. Normal appendix. Moderate dist al colonic diverticulosis. No ascites, mesenteric adenopathy, or pneumoperiton eum. Pelvis: Urinary bladder is well opacifi ed by excreted contrast. Uterus is present. No pelvic adenopathy. Abdominal wall and Osseous Structures: Lumbar spondylosis, greatest at L4-L5 and L5-S1. At L4-L5, there is a probable mo derate sized disc protrusion which contributes to at least moderate centra l spinal stenosis (sagittal image 80, series 2 image 91). Additional probable small disc protrusion at L5-S1 with at least mild central spinal stenosis. No destructive osseous lesions are identified. Procedure Note Interface, Radiant Results - 06/24/2021 1:50 AM CDT CTA CHEST, CT ABDOMEN AND PELVIS Clinical Indication: Epigastric abdominal pain, brain lesions, d-dimer elevated Technique: Multiple contiguous axial images were obtained through the chest, abdomen and pelvis following the administration of IV contrast material. Post processing coronal and sagittal reconstruction images were made from the axial images. Image post-processing was obtained. IV contrast: Yes Bowel contrast: None Comparison: Same-day MRI brain CHEST FINDINGS: Lower Neck: No definite lower cervical lymphadenopathy, although, artifact limits evaluation. Axilla, Mediastinum and Bhavya: Moderate left axillary, mediastinal, and left hilar lymphadenopathy. Software Client Architect prevascular mediastinal lymph node measures 3.5 x 3 cm (series 2 image 20). Calcified left hilar granulomas. Heart and Great Vessels: Mild cardiomegaly with small pericardial effusion. Mild coronary artery calcification. Thoracic aorta is normal in caliber with mild mixed atherosclerosis. Enlargement of the main pulmonary trunk measuring 3.3 cm in diameter. Mild narrowing of central left pulmonary arteries due to adenopathy. No pulmonary artery filling defects are identified. Airway, Lungs and Pleura: Evaluation of detail limited by motion. Minimal central tracheobronchial secretions. Left hilar bronchial narrowing by adenopathy, greatest in the left upper lobe, without occlusion. Central bronchial wall thickening. Scattered peripheral and partial opacification, greatest in the right middle and left lower lobes with associated areas of linear subsegmental atelectasis. Mild upper lobe predominant emphysema with scattered areas of scarring. Subtle mosaic attenuation. Scattered tiny noncalcified nodular opacities in both lungs (such as series 301 image 54 in the left upper lobe). A few of the nodular opacities are somewhat ill-defined (such as series 3 on image 73 in the right upper lobe). No pulmonary mass. No pleural effusion or pneumothorax. Chest Wall and Osseous Structures: Mild rightward thoracic curvature. Thoracic spondylosis. No aggressive osseous lesions are identified. ABDOMEN AND PELVIS FINDINGS: Liver and Biliary system: The liver is normal in size. No focal hepatic lesion is identified. Dependent hyperdensity in the gallbladder, likely vicarious excretion of previously administered contrast. No significant biliary ductal dilatation. Major portal veins are patent. Spleen: Unremarkable. Adrenal Glands and Kidneys: Adrenal glands are unremarkable. Right renal cyst and a few additional small renal hypodensities which are too small to characterize. Linear areas of cortical hypoenhancement within both kidneys. Excreted contrast in the renal collecting systems consistent with outside CTA. No hydronephrosis. Pancreas and Retroperitoneum: Pancreas is unremarkable. No retroperitoneal adenopathy. Aorta and Major Vessels: Abdominal aorta and iliac arteries are normal in caliber with mild mixed atherosclerosis. Bowel, Mesentery and Peritoneal space: Evaluation is limited due to paucity of intraperitoneal fat. Prominent duodenal diverticulum. Bowel loops are normal in caliber. Normal appendix. Moderate distal colonic diverticulosis. No ascites, mesenteric adenopathy, or pneumoperitoneum. Pelvis: Urinary bladder is well opacified by excreted contrast. Uterus is present. No pelvic adenopathy. Abdominal wall and Osseous Structures: Lumbar spondylosis, greatest at L4-L5 and L5-S1. At L4-L5, there is a probable moderate sized disc protrusion which contributes to at least moderate central spinal stenosis (sagittal image 80, series 2 image 91). Additional probable small disc protrusion at L5-S1 with at least mild central spinal stenosis. No destructive osseous lesions are identified. IMPRESSION CHEST: 1. No evidence of acute pulmonary embol ism. Enlargement of the main pulmonary trunk which can be seen with pulmonary hypertension. 2. Moderate left axillary, mediastinal, and left hilar lymphadenopathy. Primary considerations include metastatic disease from unknown primary and lymphoma. Granulomatous disease such as sarcoidosis is an additional consideration, although, considered less likely. PET/CT and/or biopsy recommended. The left axillary lymph nodes would be amenable to percutaneous biopsy. 3. Mild cardiomegaly with small pericar dial effusion which may be malignant. 4. Scattered tiny noncalcified pulmonar y nodules, some of which are ill- defined, which are indeterminate and could represent noncalcified granulomas, nodular scars, infectious/inflammatory nodules, and/or metastases. No dominant pulmonary mass is identified. Follow up CT chest in 3 months recommended for reevaluation. 5. Mild emphysema. Bronchial wall thick ening with scattered peripheral mucous plugging suggestive of bronchitis, with associated areas of right middle and left lower lobe subsegmental atelectasis. ABDOMEN AND PELVIS: 1. Patchy bilateral linear renal cortic al hypoenhancement which can be seen with pyelonephritis and acute tubular necrosis. Clinical and laboratory correlation recommended. 2. No abdominopelvic lymphadenopathy, a scites, or bowel obstruction. Normal appendix. 3. At L4-L5, degenerative changes inclu ding probable moderate-sized disc protrusion result in at least moderate central spinal stenosis. Follow-up MRI could be obtained for further evaluation as clinically indicated. 4. Moderate distal colonic diverticulos is. #FOLLOW Finalized by Seb Castano M.D. on 06/24/2021 1:47 AM. Dictated by Seb Castano M.D. on 06/24/2021 1:26 AM. Performing Organization Address City/State/ZIP Code P chloé Number [facility] * CTA CHEST WO/W CONTRAST+POST P (06/24/2021 1:19 AM CDT) Specimen Impressions Performed At CHEST: [facility] 1. No evidence of acute pulmonary emb olism. Enlargement of the main pulmonary trunk which can be seen with pulmonary hypertension. 2. Moderate left axillary, mediastina l, and left hilar lymphadenopathy. Primary considerations include metastat ic disease from unknown primary and lymphoma. Granulomatous disease such as sarcoidosis is an additional consideration, although, considered les s likely. PET/CT and/or biopsy recommended. The left axillary lymph no ely would be amenable to percutaneous biopsy. 3. Mild cardiomegaly with small peric ardial effusion which may be malignant. 4. Scattered tiny noncalcified pulmon stacy nodules, some of which are ill-defined, which are indeterminate an d could represent noncalcified granulomas, nodular scars, infectious/i nflammatory nodules, and/or metastases. No dominant pulmonary mass is identifie d. Follow up CT chest in 3 months recommended for reevaluation. 5. Mild emphysema. Bronchial wall thi ckening with scattered peripheral mucous plugging suggestive of bronchitis, with associated areas of right middle and left lower lobe subsegmental atelectasi s. ABDOMEN AND PELVIS: 1. Patchy bilateral linear renal lauryn ical hypoenhancement which can be seen with pyelonephritis and acute tubular n ecrosis. Clinical and laboratory correlation recommended. 2. No abdominopelvic lymphadenopathy, ascites, or bowel obstruction. Normal appendix. 3. At L4-L5, degenerative changes inc luding probable moderate-sized disc protrusion result in at least moderate central spinal stenosis. Follow-up MRI could be obtained for further evaluatio n as clinically indicated. 4. Moderate distal colonic diverticul osis. #FOLLOW Finalized by Seb Castano M.D. on 021 1:47 AM. Dictated by Seb Castano M.D. on 06/24/2021 1:26 AM. Narrative Performed At CTA CHEST, CT ABDOMEN AND PELVIS [facility] Clinical Indication: Epigastric abdom inal pain, brain lesions, d-dimer elevated Technique: Multiple contiguous axial im ages were obtained through the chest, abdomen and pelvis following the admini stration of IV contrast material. Post processing coronal and sagittal reconst ruction images were made from the axial images. Image post-processing was obtai rebecca. IV contrast: Yes Bowel contrast: None Comparison: Same-day MRI brain CHEST FINDINGS: Lower Neck: No definite lower cervical lymphadenopathy, although, artifact limits evaluation. Axilla, Mediastinum and Bhvaya: Moderate left axillary, mediastinal, and left hilar lymphadenopathy. Software Client Architect p revascular mediastinal lymph node measures 3.5 x 3 cm (series 2 image 20) . Calcified left hilar granulomas. Heart and Great Vessels: Mild cardiomeg aroldo with small pericardial effusion. Mild coronary artery calcification. Thoracic aorta is normal in caliber with mild mixed atherosclerosis. Enlargement of t he main pulmonary trunk measuring 3.3 cm in diameter. Mild narrowing of central left pulmonary arteries due to adenopathy. No pulmonary artery filling defects are identified. Airway, Lungs and Pleura: Evaluation of detail limited by motion. Minimal central tracheobronchial secretions. Le ft hilar bronchial narrowing by adenopathy, greatest in the left upper lobe, without occlusion. Central bronchial wall thickening. Scattered pe ripheral and partial opacification, greatest in the right middle and left l ower lobes with associated areas of linear subsegmental atelectasis. Mild u pper lobe predominant emphysema with scattered areas of scarring. Subtle mos aic attenuation. Scattered tiny noncalcified nodular opacities in both lungs (such as series 301 image 54 in the left upper lobe). A few of the nodular opacities are somewhat ill-defined (such as series 3 on image 73 in the right up per lobe). No pulmonary mass. No pleural effusion or pneumothorax. Chest Wall and Osseous Structures: Mild rightward thoracic curvature. Thoracic spondylosis. No aggressive osseous lesi ons are identified. ABDOMEN AND PELVIS FINDINGS: Liver and Biliary system: The liver is normal in size. No focal hepatic lesion is identified. Dependent hyperdensity i n the gallbladder, likely vicarious excretion of previously administered co ntrast. No significant biliary ductal dilatation. Major portal veins are trent nt. Spleen: Unremarkable. Adrenal Glands and Kidneys: Adrenal gla nds are unremarkable. Right renal cyst and a few additional small renal hypode nsities which are too small to characterize. Linear areas of cortical hypoenhancement within both kidneys. Excreted contrast in the renal collecti ng systems consistent with outside CTA. No hydronephrosis. Pancreas and Retroperitoneum: Pancreas is unremarkable. No retroperitoneal adenopathy. Aorta and Major Vessels: Abdominal aort a and iliac arteries are normal in caliber with mild mixed atherosclerosis . Bowel, Mesentery and Peritoneal space: Evaluation is limited due to paucity of intraperitoneal fat. Prominent duodenal diverticulum. Bowel loops are normal in caliber. Normal appendix. Moderate dist al colonic diverticulosis. No ascites, mesenteric adenopathy, or pneumoperiton eum. Pelvis: Urinary bladder is well opacifi ed by excreted contrast. Uterus is present. No pelvic adenopathy. Abdominal wall and Osseous Structures: Lumbar spondylosis, greatest at L4-L5 and L5-S1. At L4-L5, there is a probable mo derate sized disc protrusion which contributes to at least moderate centra l spinal stenosis (sagittal image 80, series 2 image 91). Additional probable small disc protrusion at L5-S1 with at least mild central spinal stenosis. No destructive osseous lesions are identified. Procedure Note Interface, Radiant Results - 06/24/2021 1:50 AM CDT CTA CHEST, CT ABDOMEN AND PELVIS Clinical Indication: Epigastric abdominal pain, brain lesions, d-dimer elevated Technique: Multiple contiguous axial images were obtained through the chest, abdomen and pelvis following the administration of IV contrast material. Post processing coronal and sagittal reconstruction images were made from the axial images. Image post-processing was obtained. IV contrast: Yes Bowel contrast: None Comparison: Same-day MRI brain CHEST FINDINGS: Lower Neck: No definite lower cervical lymphadenopathy, although, artifact limits evaluation. Axilla, Mediastinum and Bhavya: Moderate left axillary, mediastinal, and left hilar lymphadenopathy. Software Client Architect prevascular mediastinal lymph node measures 3.5 x 3 cm (series 2 image 20). Calcified left hilar granulomas. Heart and Great Vessels: Mild cardiomegaly with small pericardial effusion. Mild coronary artery calcification. Thoracic aorta is normal in caliber with mild mixed atherosclerosis. Enlargement of the main pulmonary trunk measuring 3.3 cm in diameter. Mild narrowing of central left pulmonary arteries due to adenopathy. No pulmonary artery filling defects are identified. Airway, Lungs and Pleura: Evaluation of detail limited by motion. Minimal central tracheobronchial secretions. Left hilar bronchial narrowing by adenopathy, greatest in the left upper lobe, without occlusion. Central bronchial wall thickening. Scattered peripheral and partial opacification, greatest in the right middle and left lower lobes with associated areas of linear subsegmental atelectasis. Mild upper lobe predominant emphysema with scattered areas of scarring. Subtle mosaic attenuation. Scattered tiny noncalcified nodular opacities in both lungs (such as series 301 image 54 in the left upper lobe). A few of the nodular opacities are somewhat ill-defined (such as series 3 on image 73 in the right upper lobe). No pulmonary mass. No pleural effusion or pneumothorax. Chest Wall and Osseous Structures: Mild rightward thoracic curvature. Thoracic spondylosis. No aggressive osseous lesions are identified. ABDOMEN AND PELVIS FINDINGS: Liver and Biliary system: The liver is normal in size. No focal hepatic lesion is identified. Dependent hyperdensity in the gallbladder, likely vicarious excretion of previously administered contrast. No significant biliary ductal dilatation. Major portal veins are patent. Spleen: Unremarkable. Adrenal Glands and Kidneys: Adrenal glands are unremarkable. Right renal cyst and a few additional small renal hypodensities which are too small to characterize. Linear areas of cortical hypoenhancement within both kidneys. Excreted contrast in the renal collecting systems consistent with outside CTA. No hydronephrosis. Pancreas and Retroperitoneum: Pancreas is unremarkable. No retroperitoneal adenopathy. Aorta and Major Vessels: Abdominal aorta and iliac arteries are normal in caliber with mild mixed atherosclerosis. Bowel, Mesentery and Peritoneal space: Evaluation is limited due to paucity of intraperitoneal fat. Prominent duodenal diverticulum. Bowel loops are normal in caliber. Normal appendix. Moderate distal colonic diverticulosis. No ascites, mesenteric adenopathy, or pneumoperitoneum. Pelvis: Urinary bladder is well opacified by excreted contrast. Uterus is present. No pelvic adenopathy. Abdominal wall and Osseous Structures: Lumbar spondylosis, greatest at L4-L5 and L5-S1. At L4-L5, there is a probable moderate sized disc protrusion which contributes to at least moderate central spinal stenosis (sagittal image 80, series 2 image 91). Additional probable small disc protrusion at L5-S1 with at least mild central spinal stenosis. No destructive osseous lesions are identified. IMPRESSION CHEST: 1. No evidence of acute pulmonary embol ism. Enlargement of the main pulmonary trunk which can be seen with pulmonary hypertension. 2. Moderate left axillary, mediastinal, and left hilar lymphadenopathy. Primary considerations include metastatic disease from unknown primary and lymphoma. Granulomatous disease such as sarcoidosis is an additional consideration, although, considered less likely. PET/CT and/or biopsy recommended. The left axillary lymph nodes would be amenable to percutaneous biopsy. 3. Mild cardiomegaly with small pericar dial effusion which may be malignant. 4. Scattered tiny noncalcified pulmonar y nodules, some of which are ill- defined, which are indeterminate and could represent noncalcified granulomas, nodular scars, infectious/inflammatory nodules, and/or metastases. No dominant pulmonary mass is identified. Follow up CT chest in 3 months recommended for reevaluation. 5. Mild emphysema. Bronchial wall thick ening with scattered peripheral mucous plugging suggestive of bronchitis, with associated areas of right middle and left lower lobe subsegmental atelectasis. ABDOMEN AND PELVIS: 1. Patchy bilateral linear renal cortic al hypoenhancement which can be seen with pyelonephritis and acute tubular necrosis. Clinical and laboratory correlation recommended. 2. No abdominopelvic lymphadenopathy, a scites, or bowel obstruction. Normal appendix. 3. At L4-L5, degenerative changes inclu ding probable moderate-sized disc protrusion result in at least moderate central spinal stenosis. Follow-up MRI could be obtained for further evaluation as clinically indicated. 4. Moderate distal colonic diverticulos is. #FOLLOW Finalized by Seb Castano M.D. on 06/24/2021 1:47 AM. Dictated by Seb Castano M.D. on 06/24/2021 1:26 AM. Performing Organization Address City/State/ZIP Code P chloé Number [facility] * MRI HEAD WO/W CONTRAST (06/23/2021 10:49 PM CDT) Specimen Impressions Performed At 1. Moderate acute to early subacute infarct involving the right frontal, [facility] parietal, temporal and insular MCA terr itory as described. Small area of mildly increased diffusion signal with normali zed ADC within the posterior right parietal lobe which demonstrates associ ated gyriform cortical enhancement, likely reflecting a late subacute infar ct. 2. Additional tiny acute to early subac dyana infarct within the left cerebellar hemisphere. 3. Small chronic bilateral cerebral whi te matter and left caudate head lacunar infarcts and mild patchy supratentorial white matter FLAIR hyperintensities, likely reflecting chronic microvascular ischemic changes. 4. No masslike enhancement to suggest i ntracranial metastatic disease. Dr. Epperson discussed these findings with Dr. Alanis by telephone at 11:27 PM 06/23/2021 By my electronic signature, I attest th at I have personally reviewed the images for this examination and formulated the interpretations and opinions expressed in this report Finalized by Kendell Holm M.D. on 06/24/2021 12:17 AM. Dictated by Nikolay Epperson MD on 06/23/2021 11:16 PM. Narrative Performed At EXAM: MRI BRAIN [facility] HISTORY: Stroke within 24 hours, TECHNIQUE: Multiplanar and multisequenc e MR imaging of the head was performed. COMPARISON: External CTA head head Augu 2020 FINDINGS: Moderate right MCA territory restricted diffusion consistent with ischemia involving the right frontoparietal riana on as well as the posterior right insula and superior temporal gyrus. Small area of increased diffusion signal with normalized ADC within the posterior rig ht parietal lobe which demonstrates associated gyriform cortical enhancemen t (series 9 image 16). Additional tiny focus of restricted diffusion within th e left cerebellar hemisphere (series 4 image 8). Associated confluent right MC A territory FLAIR hyperintensity consistent with cytotoxic edema. Mild l ocalized mass effect without midline shift or herniation. No evidence of hem orrhagic conversion. The ventricles and subarachnoid spaces are normal in size and configuration. Incidental cavum septum pellucidum et v ergae. Focal encephalomalacia within the deep left frontal white matter with keith rounding vasogenic edema. Additional small chronic lacunar infarcts involvin g the bilateral langley radiata/centrum semiovale white matter and left caudate head. Mild patchy supratentorial white matter FLAIR hyperintensities. The cent ral vascular flow-voids are unremarkable. Normal marrow signal. Procedure Note Interface, Radiant Results - 06/24/2021 12:20 AM CDT EXAM: MRI BRAIN HISTORY: Stroke within 24 hours, TECHNIQUE: Multiplanar and multisequence MR imaging of the head was performed. COMPARISON: External CTA head head June 23, 2021 FINDINGS: Moderate right MCA territory restricted diffusion consistent with ischemia involving the right frontoparietal region as well as the posterior right insula and superior temporal gyrus. Small area of increased diffusion signal with normalized ADC within the posterior right parietal lobe which demonstrates associated gyriform cortical enhancement (series 9 image 16). Additional tiny focus of restricted diffusion within the left cerebellar hemisphere (series 4 image 8). Associated confluent right MCA territory FLAIR hyperintensity consistent with cytotoxic edema. Mild localized mass effect without midline shift or herniation. No evidence of hemorrhagic conversion. The ventricles and subarachnoid spaces are normal in size and configuration. Incidental cavum septum pellucidum et vergae. Focal encephalomalacia within the deep left frontal white matter with surrounding vasogenic edema. Additional small chronic lacunar infarcts involving the bilateral langley radiata/centrum semiovale white matter and left caudate head. Mild patchy supratentorial white matter FLAIR hyperintensities. The central vascular flow-voids are unremarkable. Normal marrow signal. IMPRESSION 1. Moderate acute to early subacute infa rct involving the right frontal, parietal, temporal and insular MCA territory as described. Small area of mildly increased diffusion signal with normalized ADC within the posterior right parietal lobe which demonstrates associated gyriform cortical enhancement, likely reflecting a late subacute infarct. 2. Additional tiny acute to early subacu te infarct within the left cerebellar hemisphere. 3. Small chronic bilateral cerebral whit e matter and left caudate head lacunar infarcts and mild patchy supratentorial white matter FLAIR hyperintensities, likely reflecting chronic microvascular ischemic changes. 4. No masslike enhancement to suggest in tracranial metastatic disease. Dr. Epperson discussed these findings with Dr. Alanis by telephone at 11:27 PM 06/23/2021 By my electronic signature, I attest that I have personally reviewed the images for this examination and formulated the interpretations and opinions expressed in this report Finalized by Kendell Holm M.D. on 06/24/2021 12:17 AM. Dictated by Nikolay Epperson MD on 06/23/2021 11:16 PM. Performing Organization Address City/State/ZIP Code P chloé Number [facility] * PROCALCITONIN (06/23/2021 9:58 PM CDT) Procalcitonin 0.06 ng/mL [facility] Comment: Suspected Lower Respiratory Tract Infection: >0.25 ng/mL-Increased likeihood bacterial infection Suspected Sepsis: >0.5 ng/mL-Increased likelihood sepsis >2.0 ng/mL-High risk of sepsis/septic shock Specimen Performing Organization Address [facility] P chloé Number [facility] [address] [place] [address] * HIV-1/2 ANTIGEN/ANTIBODY SCREEN (06/23/2021 9:58 PM CDT) HIV 1 and 2 AG Non-Reactive: Negative for [id number]: [facility] AB Screen HIV-1 Ag and HIV-1/2 specific Negative for HIV-1 antibodies. Ag and HIV-1/2 specif Specimen Performing Organization Address [facility] P chloé Number [facility] [address] [place] [phone] * TSH WITH FREE T4 REFLEX (06/23/2021 9:58 PM CDT) TSH 0.40 0.35 - 5.00 MCU/ML [facility] Specimen Blood Performing Organization Address [facility] P chloé Number [facility] [address] [place] [address] * BETA HYDROXYBUTYRATE (KETONES) (06/23/2021 9:58 PM CDT) Beta 0.4 (H) <0.3 MMOL/L [facility] Hydroxybutyrate Comment: Beta hydroxybutyrate (BOHB) is the most abundant ketone (78%), followed by acetoacetate (20%) and acetone (2%). Measurement BOHB is recommended to assess ketones in DKA. Expected BOHB Results for DKA: Initial presentation high/increasing During treatment decreasing Resolved decreasing/normal Specimen Performing Organization Address [facility] P chloé Number [facility] [address] [place] [address] * PARATHYROID HORMONE (06/23/2021 9:58 PM CDT) PTH Hormone 37.9 10 - 65 PG/ML [facility] Specimen Performing Organization Address [facility] P chloé Number [facility] [address] [place] [address] * HEPATITIS PANEL, ACUTE (06/23/2021 9:58 PM CDT) Hepatitis A IgM Non-Reactive [id number]-Ivizwavg MAIN LAB Anti HBc IgM Non-Reactive: IgM antibodies [id number]: [facility] to HBV core antigen (anti-HBc) IgM antibodies to were not detected. HBV core antigen (anti-H HBsAg Non-Reactive: HBs antigen not [id number]-Yzhmkcy e: MAIN LAB detected HBs antigen not detected Anti HCV Non-Reactive: Antibodies to [id number]-Futmpqbn : [facility] HCV were not detected. Antibodies to HCV were not detected. Specimen Performing Organization Address [facility] Code P chloé Number MAIN LAB [address] [place] [address] * PTT (APTT) (06/23/2021 9:58 PM CDT) APTT 28.7 24.0 - 36.5 SEC [facility] Specimen Blood Performing Organization [facility] P chloé Number [facility] [address] [place], [place] [phone] * PROTIME INR (PT) (06/23/2021 9:58 PM CDT) INR 1.2 0.8 - 1.2 MAIN LAB Specimen Blood Performing Organization [facility] P chloé Number MAIN LAB [address] [place] [address] * D-DIMER (06/23/2021 9:58 PM CDT) D-Dimer 7,280 (H) <500 ng/mL FEU MAIN LAB Comment: Recent evidence supports the use of clinical pretest probability and age-adjusted D-Dimer reference ranges for evaluation of deep vein thrombosis and pulmonary embolism in patients greater than 50 years of age. AGE D-Dimer(FEU, ng/mL) 50 years or less <500 >50 years <Age x 10 ng/mL Specimen Blood Performing Organization Address [facility] P chloé Number MAIN LAB [address] [place] [phone] * C3 COMPLEMENT 3 (06/23/2021 9:58 PM CDT) Complemnt C3 150.0 88 - 200 MG/DL MAIN LAB Specimen Blood Performing Organization Address [facility]/ZIP Code P chloé Number [facility] [address] [place] [address] * C4 COMPLEMENT 4 (06/23/2021 9:58 PM CDT) Complemnt C4 41.0 10 - 49 MG/DL [facility] Specimen Blood Performing Organization Address [facility] Code P chloé Number [facility] [address] [place] [address] * C REACTIVE PROTEIN (CRP) (06/23/2021 9:58 PM CDT) C-Reactive 0.30 <1.0 MG/DL [facility] Protein Specimen Performing Organization Address [facility] Code P chloé Number MAIN LAB [address] [place] [address] * PHOSPHORUS (06/23/2021 9:58 PM CDT) Phosphorus 3.5 2.0 - 4.5 MG/DL [facility] Specimen Blood Performing Organization Address [facility] Code P chloé Number [facility] [address] [place] [address] * LIPASE (06/23/2021 9:58 PM CDT) Lipase 28 11 - 82 U/L [facility] Specimen Performing Organization Address [facility] Code P chloé Number MAIN LAB [address] [place] [address] * LDH-LACTATE DEHYDROGENASE (06/23/2021 9:58 PM CDT) Lactate 370 (H) 100 - 210 U/L [facility] Dehydrogenase Specimen Performing Organization Address [facility] Code P chloé Number [facility] [address] [place] [address] * LACTIC ACID(LACTATE) (06/23/2021 9:58 PM CDT) Lactic Acid 0.8 0.5 - 2.0 MMOL/L [facility] Specimen Performing Organization Address [facility] Code P chloé Number [facility] [address] [place] [address] * HEMOGLOBIN A1C (06/23/2021 9:58 PM CDT) Hemoglobin A1C 5.5 4.0 - 6.0 % [facility] Comment: The ADA recommends that most patients with type 1 and type 2 diabetes maintain an A1c level <7%. Specimen Blood Performing Organization Address [facility] [facility] P [facility]lo[facility] Number [facility] [address] [place] [address] * VITAMIN B12 (06/23/2021 9:58 PM CDT) Vitamin B12 387 180 [phone] 914 PG/ML [facility] Specimen Blood Performing Organization Address [facility] P [facility]lo[facility] Number [facility] [address] [place] [address] * LIPID PROFILE (06/23/2021 9:58 PM CDT) Cholesterol 228 (H) <200 MG/DL [facility] Triglycerides 193 (H) <150 MG/DL [facility] HDL 55 >40 MG/DL [facility] LDL 128 (H) <100 mg/dL [facility] VLDL 39 MG/DL [facility] Non HDL 173 MG/DL [facility] Cholesterol Comment: Calculated non-HDL Cholesterol (non-HDL-C) indirectly measures LDL-C, Lp(a), IDL-C, and VLDL-C. It is a surrogate marker for Apoprotein B. Goal should be less than 130 mg/dL. Specimen Blood Performing Organization Address [facility] P [facility] Number MAIN LAB [address] [place] [address] * MRSA PNEUMONIA SCREEN (06/23/2021 9:15 PM CDT) MRSA Pneumonia NOT DETECTED MAIN LAB PCR The negative predictive hina ue of this assay for MRSA pneumonia is high. Discontinuation of anti-MRSA pneumonia therapy is recommended in patients without additional clinical features that warrant MRSA therapy. Contact infectious Diseases or Antimicrobial Stewardship with questions. Specimen Flocked Swab - Nasal Swab Performing Organization Address [facility] P [facility]lo[facility] Number [facility] [address] [place] [address] * COVID-19 (SARS-COV-2) PCR (06/23/2021 9:15 PM CDT) COVID-19 FLOCKED SWAB MAIN LAB (SARS-CoV-2) NASOPHARYNGEAL PCR Source COVID-19 NOT DETECTED DN-NOT DETECTED MAIN LAB (SARS-CoV-2) Comment: PCR This assay is designed to detect the S and/or ORF1ab genes of SARS-CoV-2 using nucleic acid amplification. A "Not Detected" result does not preclude the possibility of SARS-CoV-2 infection since the adequacy of sample collection and/or low viral burden may result in the presence of viral nucleic acids below the analytical sensitivity of this test method. Test results should be used along with other clinical and laboratory data in making the diagnosis. Test parameters have not been validated for screening in asymptomatic patients.This test has not been FDA cleared or approved. This test is authorized for use under the FDA Emergency Use Authorization and performance characteristics have been verified by the [facility]. Fact sheet for providers: https://www.fda.gov/media/6052 85/download Fact sheet for patients: https://www.fda.gov/media/7414 87/download Specimen Flocked Swab - Nasopharyngeal Performing Organization Address City/State/ZIP Code P chloé Number MAIN LAB [address] [place] [address] * CTA HEAD EXTERNAL IMAGING (06/23/2021 2:38 PM CDT) Specimen Narrative Performed At This order has been auto finalized and does not contain a result. * CT HEAD EXTERNAL IMAGING (06/23/2021 2:38 PM CDT) Specimen Narrative Performed At This order has been auto finalized and does not contain a result. * TELEMETRY STRIPS-SCAN (06/23/2021 12:00 AM CDT) Narrative Performed At This result has an attachment that is n ot available. Ordered by an unspecified provider. * TELEMETRY STRIPS-SCAN (06/23/2021 12:00 AM CDT) Narrative Performed At This result has an attachment that is n ot available. Ordered by an unspecified provider. * TELEMETRY STRIPS-SCAN (06/23/2021 12:00 AM CDT) Narrative Performed At This result has an attachment that is n ot available. Ordered by an unspecified provider. * TELEMETRY STRIPS-SCAN (06/23/2021 12:00 AM CDT) Narrative Performed At This result has an attachment that is n ot available. Ordered by an unspecified provider. * TELEMETRY STRIPS-SCAN (06/23/2021 12:00 AM CDT) Narrative Performed At This result has an attachment that is n ot available. Ordered by an unspecified provider. * TELEMETRY STRIPS-SCAN (06/23/2021 12:00 AM CDT) Narrative Performed At This result has an attachment that is n ot available. Ordered by an unspecified provider. * TELEMETRY STRIPS-SCAN (06/23/2021 12:00 AM CDT) Narrative Performed At This result has an attachment that is n ot available. Ordered by an unspecified provider. from Last 3 Months Advance Directives Patient Software Client Architect Explanation Type Date Recorded Advance 06/24/2021 10:37 AM Directive/DPOA Date Inactivated Comments Code Status Date Activated Full Code 06/23/2021 8:39 PM Provider has discussed Code Status Yes w/Patient or Family?
--- OUTSIDE RECORDS SUMMARY | 2021-06-25 07:27 | XMS REPORT | Encounter Summary ---
Author Author [facility] Organization [facility] Address Unknown Phone Unavailable Care Team Providers Care Educational Administrator Name Role Phone No Pcp, Na PCP Unavailable Encounter Details Care Team Description Date Type Department Arrived 06/23/2021 Hospital Imaging: [facility] [address] [place] [address] Social History Date Tobacco Use Types Packs/Day [...] Patient-Stat Aut hor Goal Type Problems ed? [facility] No Francia Vazquez RN documented as of this encounter Procedures Comments Procedure Name Priority Date/Time Associated Diag nosis CT HEAD EXTERNAL IMAGING Routine 06/23/2021 2:38 PM CDT documented in this encounter Results * CT HEAD EXTERNAL IMAGING (06/23/2021 2:38 PM CDT) Specimen Narrative Performed At This order has been auto finalized and does not contain a result. documented in this encounter Visit Diagnoses Not on filedocumented in this encounter Additional Health Concerns Assessment Noted Time A fall risk assessment has been completed for the pat ient 06/23/2021 7:54 PM CDT documented as of this encounter
--- OUTSIDE RECORDS SUMMARY | 2021-06-25 07:27 | XMS REPORT | Encounter Summary ---
Author Author [facility] Organization [facility] Address Unknown Phone Unavailable Care Team Providers Care Associate Justice Name Role Phone No Pcp, Na PCP Unavailable Encounter Details Care Team Description Date Type Department Mason James MD [address] [place] [address] [phone] Shara Zhou MD [address] [place] [address] [phone] Shadia Kim MD [address] [place] [address] [phone] Nola Mahajan MD [address] [place] [address] [phone] Metastatic cancer to brain (HCC) 06/23/2021 Hospital Blood and Marrow Encounter Transplant: [facility] [address] [place] [address] [address] [place] [address] Social History Date Tobacco Use Types Packs/Day [...] / COVID-19? documented as of this encounter Last Filed Vital Signs Reading Time Taken [...] 06/23/2021 7:54 PM CDT Body Mass Index documented in this encounter Functional Status Date of Assessment Functional Status Response 06/23/2021 Does the patient have a hearing impairment: No documented as of this encounter Progress Notes * Ashley Meyers RN - 06/25/2021 6:[address] Martini on troponin lab this morning and an 8 beat run of vtach per telemetry. Pt. asymptomatic. VSS. No new orders. * Stacy Almaguer RN - 06/25/2021 2:32 AM CDT 0100 report given to Brissa Malcolm * Shadia Kim MD - 06/24/2021 9:38 AM CDT General Progress Note Name: Taisha Rios Today's Date: 06/24/2021 Admission Date: 06/23/2021 LOS: 1 day Assessment/Plan: 55 y.o. years old female with the medical history of active tobacco abuse, alcoh ol use, THC use who was transferred from [facility] with stroke, and imaging raising co ncern for intracranial metastatic disease. Acute/subacute right frontal, temporal, insular, parietal ischemic stroke Acute Left cerebellar ischemic stroke Left frontal encephalomalacia with vasogenic edema Dysphagia - Patient lives by herself independent in ADL and ambulation. Daily tobacco and marijuana use. Also previously daily alcohol use but has to cut down on drinking because of recent epigastric pain for approximately 10 days prior to admission - Noted to have difficulty swallowing and talking on June 23 around 9 AM, at [facility]. Was transferred to outside hospital. CT headscattered regions of low atten uation. Supratentorial bilaterally to white matter. Largest region right parieta lIschemic changes vs demyelination vs metastatic disease. CTA patent vessels. No high grade aneurysm or dissection. Partially visualized mass vs lymphadenopathy left upper mediastinum measuring 2.1 cm CXR- cardiomegaly. Mild congestion - Neurology consulted and there was no indication for TPA per their evaluation - On arrival, patient noted to have mild dysarthria, mild dysphagia, mild left f acial drooping. NIH score of 3 - MRI here with acute ischemic infarcts in right MCA territory as well as left c erebellar and concern for embolic source - PT/OT, speech and rehab consulted - Failed swallow evaluation but could not tolerate placement of Corpak either to day. Will keep trying to gain enteric access. - Maintain telemetry. 2D echo pending. Hypercoagulable work-up ordered. - Neurology recommendations appreciated. Lymphadenopathy - CT abd/chest with left axillary, mediastinal and hilar LAD - IR core biopsy of left axillary LN ordered - LDH elevated but no other cellular evidence of hypercellularity - Lymphoma high on the list due to cachexia and hypercoagulability. - Low fibrinogen is likely consumptive, trend daily till normal. If trends lower than 50, will need hematology consult. Complicated UTI with sepsis POA - Fever, tachycardia, inflammatory sediment on UA and CT abd with suspected pyel onephritis - IV rocephin for now - Urine culture pending. Marijuana use Tobacco abuse and dependence - Counseled about importance of quitting marijuana by admitting physicia, as wel l as tobacco cessation - Nicotine replacement ordered. 21 mcg patch for 12-14 cigarettes/day Epigastric abdominal pain - Had to cut down her alcohol intake because of that over past few weeks - Lipase and liver enzymes normal. CT abd without acute etiology to explain pain - Angina variant is considered specially with elevated troponin but EKG non-isch emic and tenderness to palpation more supportive of gastritis - IV PPI twice daily for now Acute illness/Severe malnutrition - Moderate loss of muscle mass, Moderate loss of body fat, Energy intake: < 50% of estimated energy requirement for 5 days or more - Malnutrition Interventions: EN recs placed. - Enteric acces lacking at this time. Tropinemia - Elevated troponin without diagnosed CAD - 2D echo pending - 300 mg aspirin given rectally due to NPO status. Unable to administer statin - No family history of CAD but life-long smoker. Chronic productive cough Chronic tobacco use Emphysema and bronchitis on CT - Clinical picture consistent with COPD - Bronchodilator therapy initiated - Avoid systemic steroids so as not to alter core biopsy results. - Will need at least Spiriva at discharge. DVT Px - Lovenox on hold due to planned biopsy Disposition - Full CPR - Continue inpatient care for acute stroke, pyelonephritis, dysphagia, concern f or lymphoma. Total visit time of 45 minutes with an estimated time of 30 minutes (face to fac e and unit/floor time) spent evaluating patient, reviewing documentation by othe r teams, counseling the patient on abnormal labs and imaging results, treatment options and coordinating care with pharmacy, RN, IR and hematology material control specialist. Subjective Taisha Rios is a 55 y.o. female. Patient reports speech has improved this morn ing. Headache is still present. Daughter at bedside. No chest pain. Abd pain has settled. Weakness persists. Not hungry. No dizziness. No vision changes. Medications Reviewed. Objective BP: 118/76 (06/24 344) Temp: 37.1 C (98.8 F) (06/24 344) Pulse: 97 (06/24 800) Respirations: 19 PER MINUTE (06/24 344) SpO2: 95 % (06/24 344) Height: 157.5 cm (62") (06/23 1954) Physical Exam General: Alert, cooperative, no distress, appears stated age, cachetic Head: Normocephalic, atraumatic. Eyes: Conjunctivae clear, pupils reactive Oropharynx: Dry mucus membranes. Neck: Supple, symmetrical, trachea midline, no adenopathy, no JVD Lungs: Inspiratory rhonchi diffusely. Heart: Regular rate and rhythm, S1, S2 normal, S4 appreciated. Abdomen: Soft, mild epi. Bowel sounds normal. Extremities: Extremities normal, atraumatic, no cyanosis or edema Pulses: 2+ and symmetric, all extremities Neurologic: Dysarthria, dysphagia and left facial droop. Lab Review Pertinent labs reviewed and summarized. Radiology and other Diagnostics Review: Pertinent radiology reviewed. Summarized. Shadia Kim MD, FACP Team Pager [phone] [employer] Team K Voalte is the preferred method of communication. Please use the [employer] First Call for all patient-related communications. Pe rsonal Voaltes and pagers are not answered at all hours. * Jocelyne Muñiz MA,[facility]-[employer] - 06/24/2021 9:25 AM CDT SPEECH-LANGUAGE PATHOLOGY CLINICAL SWALLOW ASSESSMENT Name: Taisha Rios : 1965 Age: 55 y.o. Admission Date: 06/23/2021 LOS: 1 day Evaluation Summary Clinical swallow evaluation completed. Clinical Impression: Moderate dysphagia Sources of Dysphagia: Weakness from recent CVA, Incoordiation Pt w/ very poor oral coordination/anterior spillage/residues followed by coughin g after the swallow suspicious for s/s of aspiration. Swallow Recommendations NPO: Consider short term non-oral nutrition Medications: NG tube Oral Hygiene: Complete oral care to minimize the risk of aspirating oral bacteri a Moistened oral swabs VS occasional ice chip for oral comfort/moisture and to fac ilitate functional swallow @ discretion of RN w/ supervision PO Presentation Presentations: Therapist Fed, Patient Fed Self Thin Liquid: Tsp, Cup, Straw [place] Thick Liquid: Tsp, Cup, Straw Other Consistencies: Puree Clinical Interpretation of Oral Stage Withdraw Bolus: Impaired labial closure, difficulty sucking via straw Form Bolus: Slowed, Incoordinated, Incomplete(bolus spreads) Masticate Bolus: Did not trial masticated solids due to safety concerns Transfer Bolus: Suspect early spillover, Lingual incoordination, Lingual weaknes s, Slowed, Uncoordinated Anterior Bolus Spillage: On left, Midline loss, Impaired labial closure, Labial weakness; w/ ice chips and liquids-moderate amount Oral Residue: Throughout(puree) Clinical Interpretation of Pharyngeal Stage Laryngeal Elevation: Suspected to be reduced(palpable) Signs / Symptoms Of Aspiration: Thin, [place] Thin: Cough, Wet vocal quality, Multiple swallows [place]: Cough, Wet vocal quality, Multiple swallows Suspected Pharyngeal Stage Impairment: Decreased laryngeal vestibule closure, In complete pharyngeal clearance, Mistimed airway protection Oral [facility] Exam Oral [facility] WFL*: No Lips: Impaired ROM - L, Impaired Strength - L, Impaired Sensation - L Tongue: Impaired ROM - L, Impaired Strength - L, Impaired Sensation - L Buccal: Impaired ROM - L, Impaired Strength - L Jaw: Impaired ROM Velopharynx: WFL Vocal Quality: Strained, Reduced Loudness Volitional Cough: Weak Throat Clear: Weak Dentition: Dentures - Good fit Oral [facility] Exam Summary*: On room air. Alert and oriented to person, place, month , year. Significant dysarthria noted, strained, ?hypernasal, hypophonic Attempted Swallow Strategies Small Bites/Sips: Not effective Slow Rate of Intake: Not effective Multiple Swallows: Not effective Liquids by Spoon: Not effective Liquids by Cup: Not effective Liquids by Straw: Not effective Effortful Swallow: Not effective Objective Relevant Med Background: Taisha Rios is a 55 year old female w/ prior medical h x of tobacco abuse, alcohol use, THC use who was transferred from [facility] for [facility] r evaluation and management of stroke mimic with concern about metastatic diseas e to the brain. Pt w/ recent episodes of epigastric pain/nausea over the last fe w weeks. MRI head 06/23/21 IMPRESSION 1. Moderate acute to early subacute infarct involving the right frontal, parietal, temporal and insular MCA territory as described. Small area of mildly increased diffusion signal with normalized ADC within the posterior right parietal lobe which demonstrates associated gyriform cortical enhancement, likely reflecting a late subacute infarct. 2. Additional tiny acute to early subacute infarct within the left cerebellar hemisphere. 3. Small chronic bilateral cerebral white matter and left caudate head lacunar infarcts and mild patchy supratentorial white matter FLAIR hyperintensities, likely reflecting chronic microvascular ischemic changes. 4. No masslike enhancement to suggest intracranial metastatic disease. CT 8/8/21 IMPRESSION CHEST: 1. No evidence of acute pulmonary embolism. Enlargement of the main pulmonary trunk which [...] percutaneous biopsy. 3. Mild cardiomegaly with small pericardial effusion which may be malignant. 4. Scattered tiny noncalcified pulmonary nodules, some of which are ill-defined, which are indeterminate and could represent noncalcified granulomas, nodular scars, infectious/inflammatory nodules, and/or metastases. No dominant pulmonary mass is identified. Follow up CT chest in 3 months recommended for reevaluation. 5. Mild emphysema. Bronchial wall thickening with scattered peripheral mucous plugging suggestive of bronchitis, with associated areas of right middle and left lower lobe subsegmental atelectasis. ABDOMEN AND PELVIS: 1. Patchy bilateral linear renal cortical hypoenhancement which can be seen with pyelonephritis and acute tubular necrosis. Clinical and laboratory correlation recommended. 2. No abdominopelvic lymphadenopathy, ascites, or bowel obstruction. Normal appendix. 3. At L4-L5, degenerative changes including probable moderate-sized disc protrusion result in at least moderate central spinal stenosis. Follow-up MRI could be obtained for further evaluation as clinically indicated. 4. Moderate distal colonic diverticulosis. Handedness: Right Hearing: WFL Lives With: Alone Psychosocial Status: Willing and Cooperative to Participate Persons Present: (daughter and son-in-law) Subjective Pain: Patient has no complaint of pain, Patient demonstrates no signs of pain Trach Presence: No Feeding Tube Present During Eval: None Nutrition Nutrition Prior To Hospitalization: Oral, Regular, Thin Liquids Current Form Of Nutrition: NPO, IV Fluids Education Persons Educated: Patient, Family Barriers To Learning: (? decreased recall) Interventions: Staff Educated, Repetition of Instructions, Family Educated Teaching Methods: Verbal, Demonstration Topics: Dysphagia Patient Response: Verbalized Understanding Goal Formulation: With Patient, With Family Assessment/Prognosis Plan: 3-5 x/week Prognosis: Fair NOMS Dysphagia Ratin-Moderate Dysphagia -Alternative method of feeding neede d. Pt takes < 50% of nutrition/hydration by mouth &/or swallow safe w/ consistent mod cueing to use compensatory strategies &/or requires max diet restriction. Clinical Swallow Goals Goal : The patient will participate in ongoing assessment of swallow function w/ min cues Goal : The patient will participate in assessment of cognitive/communication ski lls as clinically appropriate Therapist:Jocelyne Muñiz MA, L/CCC-[employer] DES[employer]ER Voalte: [phone] Weekend pager: [phone] Date:06/24/2021 * Shara Zhou MD - 06/24/2021 12:11 AM CDT 100.4 fever reported by RN, but 99 in report. BC and urine cultures, monitor clinically. F/u abd and chest ct. * Shara Zhou MD - 06/23/2021 9:10 PM CDT Based on my previous evaluation and management of the patient, it was medically beneficial to review patient's previous records. The records were received From: [facility] Signed by: Pradip Cm Jun 23, at 12: 11 am For the purpose of: admission. The summary: D dimer elevation Plate normal limits. Allergies not verified. Mediastinal mass noted on neck ct, not cxr. Records review/ summary took at least 35 minutes. The records that were obtained/reviewed/summarized should be scanned into 02 in outside records. documented in this encounter H&P Notes * Sahra Zhou MD - 06/23/2021 8:22 PM CDT Images from the original note were not included. Admission History and Physical Note Patient's name: Taisha Rios Patient's account/billing number: [id number] Patient's Date of : 1965 Age: 55 y.o. Date of Admission: 06/23/2021 7:47 PM Date of History and Physical Examination: 06/23/2021 Primary Care Physician: No primary care provider on file. Code Status: full Code status was discussed with the patient Assessment and Plan Assessment/Plan: Taisha Rios is a 55 y.o. years old female with the medical history of -Active tobacco abuse - alcohol use - THC use. has been admitted for further evaluation and management of stroke mimic with co ncern about metastatic disease to the brain Principal Problem: Metastatic cancer to brain (HCC) #Stroke mimic/abnormal CT head finding -Patient lives by herself. Her daughter lives close to her house. Usually ambu lating with no assistance -Smoke 1 pack/day for many years. Use marijuana. Daily drinker but has to cut down on drinking because of recent epigastric pain for approximately 10 days rocky or to admission -Noted to have difficulty swallowing and talking on June 23 9 AM. She was at [facility]. -Was transferred to outside hospital. CT head scattered regions of low attenuati on. Supratentorial bilaterally to white matter. Largest region right parietalIsc hemic changes vs demyelination vs metastatic disease. CTA patent vessels. No hig h grade aneurysm or dissection. Partially visualized mass vs lymphadenopathy lef t upper mediastinum measuring 2.1 cm CXR- cardiomegaly. Mild congestion -Neurology consulted and there was no indication for TPA per their evaluation -On arrival, patient noted to have mild dysarthria, mild dysphagia, mild left fa cial drooping. NIH score of 3 -Admit on telemetry -Brain MRI -Recheck electrolytes, troponin, D-dimer, CBC, -Aspirin rectally -We will benefit from neurology/neurosurgery evaluation #Substance use -Counseled about importance of quitting marijuana, as well as smoking cessation #Epigastric abdominal pain for few weeks -Had to cut down her alcohol intake because of that -Check H. pylori, troponin, lipase, LFT -Obtain abdominal CT #Cachexia -Dietary consult #Troponin elevation in outside facility -Reported as a 3? -Asymptomatic with no chest pain, shortness of breath, -Keep on telemetry, given hypertension, will benefit from IV metoprolol -Not able to provide statin due to n.p.o. status -Aspirin rectally -Echocardiogram #Sputum production -Could be from dysphagia/aspiration or could be a bronchitis from active smoking -Obtain sputum culture -Check D-dimer -We will need to review chest x-ray on outpatient facility -Check spirometry. Patient may probably have COPD with wheezing on admission. Inhaler therapy. Respiratory evaluation This note was created using [employer] Dictation software, hence some grammatical errors may still be present despite editing at the time of the dictation, ) Chief Complaint: Dysphagia HPI: History was obtained from patient, reviewing O2. Taisha Rios is a 55 y.o. female with PMH as mentioned above Directly admitted from outside facility for further evaluation of stroke mimic w ith concern about brain metastatic disease Patient started having sudden onset of dysphagia on the day of admission around 10 in the morning. She was at home. It was more for liquid rather than solid f ood. Never had similar symptom before. No weakness or numbness. No injury or trauma. Has been having epigastric pain, nausea and vomiting for 2 weeks. Has been havi ng headache for approximately 1-1/2 months. Was evaluated by primary care physician according to her and she got colonoscopy few days ago. She has not been up-to-date with cancer screening test including breast imaging. Has been active smoker, drinker until recently, and marijuana user Her appetite has been down recently because of epigastric pain/dyspepsia. No ch stefanie in weight was reported/patient unsure - records from previous encounters have been reviewed Past Medical History Medical History: Diagnosis Date Smoker Past Surgical History History reviewed. No pertinent surgical history. Allergies Patient has no known allergies. Home Meds: Prior to Admission medications Not on File Social History: TOBACCO: reports that she has been smoking cigarettes. She has a 15.00 pack-ye ar smoking history. She has never used smokeless tobacco. ETOH: reports current alcohol use of about 3.0 standard drinks of alcohol per week. FH Family History Problem Relation Age of Onset Cancer-Lung Mother Her mom had melanoma metastasized to her lung, and her of non-Hodgk in lymphoma All the histories listed above; including Past Medical History, Past Surgical Hi story, Family History and Social History have been reviewed. ROS A comprehensive 14-point ROS was negative except as mentioned in HPI above . PE Vitals: Vital Signs: Last Filed In 24 Hours Vital Signs: 24 Hour Range BP: 145/85 (06/23 1954) Temp: 37.2 C (99 F) (06/23 1954) Pulse: 88 (06/23 1954) Respirations: 20 PER MINUTE (06/23 1954) SpO2: 99 % (06/23 1954) Height: 157.5 cm (62") (06/23 1954) BP: (145)/(85) Temp: [37.2 C (99 F)] Pulse: [88] Respirations: [20 PER MINUTE] SpO2: [99 %] Intensity Pain Scale (Self Report): 6 (06/23/211953) No intake or output data in the 24 hours ending 06/23/217 Wt Readings from Last 3 Encounters: 06/23/21 49 kg (108 lb 0.4 oz) Body mass index is 19.76 kg/m. General: Patient seems to be clinically stable and in mild immediate distress. A AO x3 HEENT: NC/AT Heart: S1 S2 present, RRR, no audible rubs or murmurs heard Lungs: Bilateral air entry noted, normal breath sounds and mild prolongation of expiratory phase. Abdomen: Soft, non tender and no masses noted. Bowel sounds were present. Not d istended Extremities: no pedal edema; no calf tenderness Skin: No obvious new skin rashes. Mildly bruised left leg. Nail with yellow pi gmentation, koilonychia Neurologic: Seems oriented. No new obvious abnormality of cranial nerves, motor system noted NIH score of 3. [Known to have dysphagia, left facial droop, mild dysarthria] Current Medication No medications prior to admission. Scheduled Meds: Continuous Infusions: PRN Meds: Labs Lab Review 24-hour labs: No results found for this visit on 06/23/21 (from the past 24 uday r(s)). Imaging Reviewed, Notable for: EKG: Sinus rhythm, QTc within acceptable limit, no ST segment elevation. CT HEAD EXTERNAL IMAGING Result Date: 06/23/2021 This order has been auto finalized and does not contain a result. CTA HEAD EXTERNAL IMAGING Result Date: 06/23/2021 This order has been auto finalized and does not contain a result. direct visualization and independent view of the EKG was performed. Diet NPO ADVANCE DIET TOLERATED Results, diagnoses, prognoses were reviewed with the patient Benefits / risks were explained in details. All questions answered. discussed with RN, referring physician (OLGA) I spent a total of 70 minutes involved in this patient's initial hospital care. documented in this encounter Consult Notes * Joanna Kim RD - 06/24/2021 11:08 AM CDT Associated Order(s): CONSULT DIETITIAN CLINICAL NUTRITION Clinical Nutrition Initial Assessment Name: Taisha Rios : 1965 Age: 55 y.o. Admission Date: 06/23/2021 LOS: 1 day Recommendation: Per [employer] recs for short-term non-oral nutrition, rec continuous EN regimen of Isosource 1.5 at goal rate of 50 ml/hr. Start at 20 ml/hr and advance 10 ml/hr Q 6. At goal to provide 1800 kcals, 82 grams protein, and 912 ml free H2O. Additio nal water flushes per primary team or 30 ml H2O Q4. Pt at risk for refeeding syndrome: rec slow rate of advancement of EN, contin ue with thiamine supplementation, and monitor magnesium, phosphorous, and potass ium. Comments: Taisha Rios is a 55 y.o. female with PMH of tobacco use, alcohol use, marijuan a use, that neurology is consulted to evaluate for acute ischemic stroke work up . Patient initially presented to OSH with L facial droop, dysarthria and was tr ansferred to [facility] for initial concern of ischemic stroke vs metastatic lesion to brain and admitted to medicine 06/23/2021. Pt NPO because of new dysphagia. Pt had swallow assessment this AM and [employer]EV[employer] GAME DESIGNER recommending non-oral nutrition. RD met with pt at bedside with family present. Pt reports no food allergies or intolerances. Reports not weight changes, but reports that at a recent outpatient visit she weighed 107 lbs. Current wt 108 lbs. On physical exam pt present with moderate muscle loss and subcutaneous fat loss. Per chart review, pt reports epigastric p ain and nausea vomiting for the past 2 weeks that has greatly impacted appetite and PO intake. Per messaging with , planning for Corpak placement. See EN recs above. Pt meeting severe malnutrition criteria and is at high risk for refeeding syndrome. Mg/K/Phos currently WNL. Will continue to monitor. Nutrition Assessment of Patient: ; Usual Weight: 48.5 kg(per family report); BMI (Calculated): 19.76; BMI Categories Adult: Acceptable: 18.5-24.9; Appearance : Thin Pertinent Allergies/Intolerances: none reported Pertinent Labs: K 4, Mg 1.9, Phos 3.5, TGY 193, beta hydroxybutryate 0.4; Pertin ent Meds: protonix, miralax, thiamine; Unintentional Weight Loss: (none reported , no wt history available in EMR) Oral Diet Order: NPO; Current Oral Intake: NPO Estimated Calorie Needs: 3844-4185 kcals (30-40 kcals/kg current wt) Estimated Protein Needs: 73-98 grams (1.5-2 g/kg current wt) Malnutrition Assessment: Malnutrition present; ICD-10 code E43: Acute illness/Severe malnutrition; ; Mod erate loss of muscle mass, Moderate loss of body fat, Energy intake: < 50% of estimated energy requirement for 5 days or more; ; Malnutrition Interventions: EN recs placed. Nutrition Focused Physical Assessment: Loss of Subcutaneous Fat: Yes; Severity: Moderate; Location: Triceps Muscle Wasting: Yes; Severity: Moderate; Location: Deltoid, Clavicle, Calf, Quad riceps Edema: No; ; Pressure Injury: none Nutrition Diagnosis: Inadequate oral intake Etiology: dysphagia Signs & Symptoms: requiring EN as short term nutrition source per MID LEVEL GAME DESIGNER Intervention / Plan: Will monitor initiation/advancment/adequacy/tolerance of EN. Will monitor labs, meds, and wt trends. Goals: Initiate nutrition Time Frame: Within 24 hours EN tolerated and meeting 100% of nutritional needs Time Frame: Within 72 hours Joanna Kim, MS, RDN, LD Available on Voalte * Maria C Alcantar MD - 06/24/2021 2:35 AM CDT Associated Order(s): CONSULT NEUROLOGY PHYSICIAN Neurology Consultation Name: Taisha Rios Admission Date: 06/23/2021 LOS: 1 day [id number] ASSESSMENT: Principal Problem: Metastatic cancer to brain (HCC) Consult type: Opinion with orders Taisha Rios is a 55 y.o. female with PMH of tobacco use, alcohol use, marijuan a use, that neurology is consulted to evaluate for acute ischemic stroke work up . Patient initially presented to OSH with L facial droop, dysarthria and was trans ferred to [facility] for initial concern of ischemic stroke vs metastatic lesion to br ain and admitted to medicine 06/23/2021. LKN: 8:00 06/23/21 NIHSS: 3 at [facility] BP: 139/83 Neuro exam reveals lagging responses, some perseverance, dysarthria, L facial dr oop. Imaging/Diagnostic Studies: - D Dimer 7280 (high) Fibrinogen 89 (low) LDH 270 (high) C3/C4 wnl, HIV negativ e, Hepatitis panel non-reactive - LDL 128 (high) - CT Head w/o OSH reviewed: 1. Hypodensity in R temporal-occipital region 2. No evidence of intracranial bleed. - CTA H/N OSH reviewed: 1. Patent cerebral vasculature, no significant intracranial atherosclerosis - MRI Head w/ and w/o: 1. Moderate acute to early subacute infarct involving the right frontal, parietal, temporal and insular MCA territory as described. Small area of mildly increased diffusion signal with normalized ADC within the posterior right parietal lobe which demonstrates associated gyriform cortical enhancement, likely reflecting a late subacute infarct. 2. Additional tiny acute to early subacute infarct within the left cerebellar hemisphere. 3. Small chronic bilateral cerebral white matter and left caudate head lacunar infarcts and mild patchy supratentorial white matter FLAIR hyperintensities, likely reflecting chronic microvascular ischemic changes. 4. No masslike enhancement to suggest intracranial metastatic disease. - CT C/A/P: 1. No evidence of acute pulmonary embolism. Enlargement of the main pulmonary trunk which [...] percutaneous biopsy. 3. Mild cardiomegaly with small pericardial effusion which may be malignant. 4. Scattered tiny noncalcified pulmonary nodules, some of which are ill-defined, which are indeterminate and could represent noncalcified granulomas, nodular scars, infectious/inflammatory nodules, and/or metastases. No dominant pulmonary mass is identified. Follow up CT chest in 3 months recommended for reevaluation. 5. Mild emphysema. Bronchial wall thickening with scattered peripheral mucous plugging suggestive of bronchitis, with associated areas of right middle and left lower lobe subsegmental atelectasis. 1. Patchy bilateral linear renal cortical hypoenhancement which can be seen with pyelonephritis and acute tubular necrosis. Clinical and laboratory correlation recommended. Impression: #Acute-subacute R frontal, temporal, insular, parietal ischemic stroke #Acute-subacute L cerebellar stroke #L frontal focal encephalomalacia with vasogenic edema #L axillary, mediastinal and hilar lymphadenopathy Location: R MCA territory Pre-event mRS: 1 Presumed Etiology: cardio-embolic vs hypercoagulability in the setting of possib le metastasis/lymphoma. Current stroke symptoms seem to arise from R MCA territory stroke however, patie nt has multi-focal areas of ischemia on MRI and thus requires further work up fo r cardio-embolic and hypercoagulable etiologies to determine further medical man agement and if anticoagulation is necessitated. She also had 1 episode of fever and Echocardiogram will help evaluated if infective endocarditis is also a possi ble differential of current stroke. RECOMMENDATIONS: - Stroke risk factor assessment Labs to include FLP, A1c Start Atorvastatin 40mg daily (LDL 128) Echocardiogram with bubble study Telemetry to monitor for arrhythmia Smoking cessation consult for smoking history Antiplt therapy: start ASA 300mg rectally now. - Arterial Hypercoaguable panel (Acitvated protein C resistance, anticardiolipin IgM and IgG, beta-2 glycoprotein, hex-lupus anticoagulant, antithrombin III) -BP goal: <180/105 - Agree with cancer screening work up (PET/CT and/or biopsy of LN) - PT/OT/MID LEVEL GAME DESIGNER consult eval and treat - Rehab consult for assessment of post stroke care - NIHSS and mRS to be done prior to discharge. Discussed with Dr. Aquino and communicated to primary team. To be staffed formal ly in AM. Nela Santiago MD PGY-3 On voalte Pager: [phone] Addendum: added Homocysteine level to the hypercoagulability workup per Dr. Oscar laureano. Would recommend event monitor at discharge if telemetry during admission rem ains unremarkable. Maria C Alcantar M.D., PGY-4 Neurology Resident Pager [phone] __ History of Present Illness: Taisha Rios is a 55 y.o. female being seen for neur ologic evaluation regarding ischemic stroke. History obtained from patient. Patient reports being at home when she began having difficulty with swallowing w ater. She denies previous difficulties with eating although appetite has been po or recently. She was brought to [facility] ED and evaluation at that time included CT a nd CTA H/N. CT with hypodensity in R temporal-occipital region with concern for stroke vs metastasis. Patient denies any current cancer or history of cancer. CT A did not show any acute occlusion, aneurysms or significant stenosis or atheros clerosis. Patient was transferred to [facility] for further work up. At present, she denies any difficulty with moving arms or legs or sensory defici ts. She denies visual deficits. She has a mild headache and history of headaches for the past 1-2 months. She confirms smoking, marijuana use, and daily alcohol use. Denies ASA use. Medical History: Diagnosis Date Smoker History reviewed. No pertinent surgical history. Social History Socioeconomic History Marital status: Spouse name: Not on file Number of children: 3 Years of education: Not on file Highest education level: Not on file Occupational History Not on file Tobacco Use Smoking status: Current Every Day Smoker Packs/day: 1.00 Years: 15.00 Pack years: 15.00 Types: Cigarettes Smokeless tobacco: Never Used Substance and Sexual Activity Alcohol use: Yes Alcohol/week: 3.0 standard drinks Types: 3 Cans of beer per week Comment: normally drinks 1 beer/day, but has not consumed any in 3-4 days Drug use: Yes Frequency: 7.0 times per week Types: Marijuana Comment: has not smoked marijuana for 4-5 days Sexual activity: Not on file Other Topics Concern Not on file Social History Narrative Not on file Family History Problem Relation Age of Onset Cancer-Lung Mother Immunizations (includes history and patient reported): There is no immunization history on file for this patient. Allergies: Patient has no known allergies. Medications: No medications prior to admission. No current facility-administered medications on file prior to encounter. No current outpatient medications on file prior to encounter. Review of Systems: Pertinent positives in HPI, otherwise negative. Physical Exam: Vital Signs: Last Filed In 24 Hours Vital Signs: 24 Hour Range BP: 118/76 (06/24 344) Temp: 37.1 C (98.8 F) (06/24 344) Pulse: 71 (06/24 344) Respirations: 19 PER MINUTE (06/24 344) SpO2: 95 % (06/24 344) Height: 157.5 cm (62") (06/23 1954) BP: (118-145)/(76-85) Temp: [37.1 C (98.8 F)-38 C (100.4 F)] Pulse: [71-91] Respirations: [19 PER MINUTE-20 PER MINUTE] SpO2: [90 %-99 %] Intensity Pain Scale (Self Report): 6 (06/23/211953) HEENT: normocephalic, eyes open with no discharge, nares patent Chest: normal configuration, non labored breathing, chest rise equal b/l CV: normal rate and regular rhythm, distal pulses palpable Abd: soft, non- tender Skin: no rashes or lesions Neuro: Mental status: Oriented to person/place/time/situation Memory: Recent and remote memory intact Attention: Follows conversation after repeated attempts Fund of knowledge: Appropriate Level of consciousness: Alert Speech: Fluency: Hesitancy, slowed responses, perseverance Comprehension: Difficulty following along intermittently Articulation: dysarthria present Repetition: Intact Naming: Intact CN II-XII: Visual mayer intact in all mayer, PERRL, EOMI, facial sensation in tact. Symmetrical facial movement. Hearing grossly intact to conversation. Stron g cough, elevates palate b/l, uvula midline. Strong shoulder shrug. Tongue midli ne. Motor: Normal tone and decreased bulk. No abnormal movement, fasciculation or pr onator drift. NF NE SA EF EE WE WF FF FE FA TA HF GARCIA HE KF KE DF PF In Ev TF TE R 5 5 5 5 5 5 5 5 5 L 5 5 5 5 5 5 5 5 5 Sensory: Light touch: intact, without sensory level Pin prick: intact Reflexes: No clonus, jonathon, cross adductor. Babinski absent. Right Left Triceps 2 3 Biceps 3 3 Brachioradialis 3 3 Patella 2 2 Ankle Cerebellar Funciton/fine movement: dysmetria b/l with FTN, HTS intact Gait: deferred Lab/Radiology/Other Diagnostic Tests: Hematology: Lab Results Component Value Date HGB 12.1 06/24/2021 HCT 36.0 06/24/2021 PLTCT 152 06/24/2021 WBC 9.1 06/24/2021 NEUT 66 06/24/2021 ANC 5.93 06/24/2021 ALC 2.18 06/24/2021 TESSA 8 06/24/2021 AMC 0.76 06/24/2021 ABC 0.04 06/24/2021 MCV 91.5 06/24/2021 MCHC 33.5 06/24/2021 MPV 7.4 06/24/2021 RDW 13.3 06/24/2021 and General Chemistry: Lab Results Component Value Date NA 139 06/24/2021 K 4.0 06/24/2021 CL 102 06/24/2021 GAP 10 06/24/2021 BUN 14 06/24/2021 CR 0.61 06/24/2021 GLU 87 06/24/2021 CA 8.9 06/24/2021 ALBUMIN 3.8 06/24/2021 LACTIC 0.8 06/23/2021 OBSCA 1.19 06/24/2021 MG 1.9 06/24/2021 TOTBILI 1.0 06/24/2021 Glucose: 87 (06/24/21 0447) Pertinent radiology reviewed. Nela Santiago MD Neurology Resident Associated attestation - Jack Aquino MD - 06/24/2021 7:27 PM CDT ATTESTATION I personally performed the butt portions of the E/M visit, discussed case with re sident and concur with resident documentation of history, physical exam, assessm ent, and treatment plan unless otherwise noted. Staff name: Jack Aquino MD Date: 06/24/2021 documented in this encounter Miscellaneous Notes * Care Coordination-Inpatient - Arnaldo Ye MD - 06/24/2021 4:34 AM CDT Page N3 team pager [phone] till 8 AM * Care Coordination-Inpatient - Mason James MD - 06/23/2021 5:30 PM CDT Transfer accepted from outside hospital. 55 y/o F who presented with 1.5 montsh of headache, new dysarthria and dysphagia . Initial concern was for stroke, although CTA showing patent vessels. Incidentall y found to have masses concerning for metastatic disease - neurology believes sy mptoms are related to this, therefore recommended medicine admission. Will need imaging to define extent of metastatic disease (CTA showed an upper me diastinal mass as well), MRI brain, biopsy, and possibly neurosurgery, rad/onc, onc consults depending on further investigation. Jose James MD Hospitalist Pager [phone] documented in this encounter Plan of Treatment Date/Time Name Type Priority Associated Diag noses 06/23/2021 9:58 PM CDT PERIPHERAL SMEAR Lab STAT 06/23/2021 9:58 PM CDT ZINC Lab STAT 06/24/2021 5:20 AM CDT PTH RELATED PEPTIDE Lab STAT 06/24/2021 12:43 AM CDT CULTURE-BLOOD Microbiology STAT W/SENSITIVITY 06/24/2021 12:52 AM CDT CULTURE-BLOOD Microbiology STAT W/SENSITIVITY 06/24/2021 5:29 AM CDT CULTURE-URINE Microbiology STAT W/SENSITIVITY 06/24/2021 11:11 AM CDT PROTEIN C ACTIVITY Lab Routine 06/24/2021 11:11 AM CDT CARDIOLIPIN AB IGG/IGM Lab Routine 06/24/2021 11:11 AM CDT BETA 2 GLYCOPROTEIN 1 AB, Lab Routine IGG 06/24/2021 11:11 AM CDT BETA 2 GLYCOPROTEIN 1 AB, Lab Routine IGM 06/24/2021 11:11 AM CDT HEX LUPUS ANTICOAGULANT Lab Routine 06/24/2021 11:11 AM CDT ANTITHROMBIN III (AT3) Lab Routine 06/25/2021 6:30 AM CDT HOMOCYSTEINE Lab Routine Order Schedule Name Type Priority Associated Diag noses Used for early AM Blood Draw(0400) for 5 Occurrences starting 06/24/2021 until 06/28/2021, 1 completed CBC AND DIFF Lab Routine Used for early AM Blood Draw(0400) for 5 Occurrences starting 06/24/2021 until 06/28/2021, 1 completed COMPREHENSIVE METABOLIC Lab Routine PANEL Used for early AM Blood Draw(0400) for 5 Occurrences starting 06/24/2021 until 06/28/2021, 1 completed MAGNESIUM Lab Routine ONE TIME for 1 Occurrences starting 05/2021 until 06/23/2021 2D + DOPPLER ECHO ECHO AGNES ONE TIME for 1 Occurrences starting 05/2021 until 06/23/2021 PERIPHERAL SMEAR Lab STAT ONE TIME for 1 Occurrences starting 05/2021 until 06/23/2021 ZINC Lab STAT ONE TIME for 1 Occurrences starting 05/2021 until 06/23/2021 ECG 12-LEAD ECG STAT ONE TIME for 1 Occurrences starting 05/2021 until 06/23/2021 PFT SPIROMETRY ONLY PFT Routine ONE TIME for 1 Occurrences starting 05/2021 until 06/23/2021 CULTURE-RESP,LOWER Microbiology Routine W/SENSITIVITY ONE TIME for 1 Occurrences starting 05/2021 until 06/23/2021 STREPTOCOCCUS PNEUMO AG, Lab Routine URINE ONE TIME for 1 Occurrences starting 05/2021 until 06/23/2021 LEGIONELLA ANTIGEN Lab Routine URINE,RAN ONE TIME for 1 Occurrences starting 05/2021 until 06/23/2021 IONIZED CALCIUM Lab STAT ONE TIME for 1 Occurrences starting 05/2021 until 06/23/2021 PTH RELATED PEPTIDE Lab STAT Used for early AM Blood Draw(0400) until discontinued starting 06/24/2021, 1 completed FIBRINOGEN Lab Routine ONE TIME for 1 Occurrences starting 06/2021 until 06/24/2021 CULTURE-URINE Microbiology STAT W/SENSITIVITY ONE TIME for 1 Occurrences starting 06/2021 until 06/24/2021 IR AXILLARY PERCUTANEOUS Imaging Routine CORE BIOPSY Draw Next Run for 1 Occurrences starting 06/24/2021 until 06/24/2021 PROTEIN C ACTIVITY Lab Routine Draw Next Run for 1 Occurrences starting 06/24/2021 until 06/24/2021 CARDIOLIPIN AB IGG/IGM Lab Routine Draw Next Run for 1 Occurrences starting 06/24/2021 until 06/24/2021 BETA 2 GLYCOPROTEIN 1 AB, Lab Routine IGG Draw Next Run for 1 Occurrences starting 06/24/2021 until 06/24/2021 BETA 2 GLYCOPROTEIN 1 AB, Lab Routine IGM Draw Next Run for 1 Occurrences starting 06/24/2021 until 06/24/2021 HEX LUPUS ANTICOAGULANT Lab Routine Draw Next Run for 1 Occurrences starting 06/24/2021 until 06/24/2021 ANTITHROMBIN III (AT3) Lab Routine Q8HR until discontinued starting 021, 3 completed TROPONIN-I Lab Routine Once AM 400 for 1 Occurrences starting 0 06/25/2021 until 06/25/2021 HOMOCYSTEINE Lab Routine ONE TIME for 1 Occurrences starting 06/2021 until 06/24/2021 IR LYMPH NODE Imaging Routine PERCUTANEOUS CORE BIOPSY Used for early AM Blood Draw(0400) until discontinued starting 06/25/2021 FIBRINOGEN Lab Routine ONE TIME for 1 Occurrences starting 06/2021 until 06/24/2021 GUIDANCE INTRO LONG GI Imaging Routine TUBE documented as of this encounter Goals Goal Patient Associated Recent Progress Patient-Stat Aut hor Goal Type Problems ed? [facility] Francia Marinelli RN documented as of this encounter Procedures * The patient is currently admitted. The information in this section might not be complete until the patient is discharged. Comments Procedure Name Priority Date/Time Associated Diag nosis POC GLUCOSE 06/25/2021 7:22 AM CDT POC GLUCOSE 06/25/2021 6:57 AM CDT TROPONIN-I Routine 06/25/2021 2:00 AM CDT MAGNESIUM 06/25/2021 2:00 AM CDT COMPREHENSIVE METABOLIC 06/25/2021 PANEL 2:00 AM CDT HC TROPONIN-I Routine 06/24/2021 [...] Specimen 06/24/2021 in Lab 5:20 AM CDT TROPONIN-I Routine 06/24/2021 4:47 AM CDT HC FIBRINOGEN Routine 06/24/2021 4:47 AM CDT HC CBC W/ AUTOMATED DIFF Routine 06/24/2021 4:47 AM CDT HC MAGNESIUM Routine 06/24/2021 4:47 AM CDT HC COMPREHENSIVE Routine 06/24/2021 METABOLIC PANEL 4:[address] ABD/PELV W CONTRAST AGNES 06/24/2021 1:19 AM CDT CTA CHEST WO/W STAT 06/24/2021 CONTRAST+POST P 1:19 AM CDT CULTURE-BLOOD STAT 06/24/2021 W/SENSITIVITY 12:52 AM CDT CULTURE-BLOOD STAT 06/24/2021 W/SENSITIVITY 12:43 AM CDT MRI HEAD WO/W CONTRAST STAT 06/23/2021 10:49 PM CDT HC PROLCALCITONIN (PROCA) 06/23/2021 9:58 PM CDT HC HIV 1/2 SHOLA AG SCREEN 06/23/2021 9:58 PM CDT HC TSH SCREEN STAT 06/23/2021 9:58 PM CDT HC BETA HYDROXYBUTYRATE 06/23/2021 9:58 PM CDT HC TROPONIN-I STAT 06/23/2021 9:58 PM CDT HC PTH 06/23/2021 9:58 PM CDT HC ACUTE HEPATITIS PANEL 06/23/2021 9:58 PM CDT HC PTT(APTT) STAT 06/23/2021 9:58 PM CDT HC PT(INR) STAT 06/23/2021 9:58 PM CDT HC FIBRINOGEN STAT 06/23/2021 9:58 PM CDT HC D-DIMER STAT 06/23/2021 9:58 PM CDT HC CBC W/ AUTOMATED DIFF STAT 06/23/2021 9:58 PM CDT HC C3(COMPLEMENT 3) STAT 06/23/2021 9:58 PM CDT C4 COMPLEMENT 4 STAT 06/23/2021 9:58 PM CDT HC C-REACTIVE PROTEIN 06/23/2021 (CRP) 9:58 PM CDT HC PHOSPHOROUS, SERUM STAT 06/23/2021 9:58 PM CDT HC LIPASE 06/23/2021 9:58 PM CDT HC LD(LDH;LACTIC 06/23/2021 DEHYDROGENASE) 9:58 PM CDT HC LACTIC ACID(LACTATE) 06/23/2021 9:58 PM CDT HC HEMOGLOBIN A1C STAT 06/23/2021 9:58 PM CDT HC VITAMIN B12 STAT 06/23/2021 9:58 PM CDT HC STAT 06/23/2021 LIPID-5:CHOL/TRG/HDL/LDL+ 9:58 PM CDT VLDL HC COMPREHENSIVE STAT 06/23/2021 METABOLIC PANEL 9:58 PM CDT HC MRSA PNEUMONIA SCREEN Routine 06/23/2021 9:15 PM CDT COVID-19 (SARS-COV-2) PCR STAT 06/23/2021 9:15 PM CDT TELEMETRY STRIPS-SCAN 06/23/2021 12:00 AM CDT TELEMETRY STRIPS-SCAN 06/23/2021 12:00 AM CDT TELEMETRY STRIPS-SCAN 06/23/2021 12:00 AM CDT TELEMETRY STRIPS-SCAN 06/23/2021 12:00 AM CDT TELEMETRY STRIPS-SCAN 06/23/2021 12:00 AM CDT TELEMETRY STRIPS-SCAN 06/23/2021 12:00 AM CDT TELEMETRY STRIPS-SCAN 06/23/2021 12:00 AM CDT documented in this encounter Results * POC GLUCOSE (06/25/2021 7:22 AM CDT) Glucose, POC 129 (H) 70 - 100 MG/DL [facility] Specimen Performing Organization Address City/[facility]/ZIP Code P chloé Number [facility] [address] [place] [address] * POC GLUCOSE (06/25/2021 6:57 AM CDT) Glucose, POC 64 (L) 70 - 100 MG/DL [facility] Specimen Performing Organization Address City/[facility]/ZIP Code P chloé Number [facility] [address] [place] [phone] * MAGNESIUM (06/25/2021 2:00 AM CDT) Magnesium 2.0 1.6 - 2.6 mg/dL [facility] Specimen Performing Organization Address [facility] P chloé Number [facility] [address] [place] [address] * COMPREHENSIVE METABOLIC PANEL (06/25/2021 2:00 AM CDT) Sodium 138 137 - 147 MMOL/L [facility] [...] >60 >60 mL/min [facility] Comment: Chinese The eGFR is not validated f or use in drug dosing adjustments. Continue to use estimated creatinine clearance per dosing reference text. Please contact the Clinical Pharmacist for questions. eGFR >60 >60 mL/min [facility] Chinese Comment: The eGFR is not validated for use in drug dosing adjustments. Continue to use estimated creatinine clearance per dosing reference text. Please contact the Clinical Pharmacist for questions. Specimen Performing Organization Address City/[facility]/ZIP Code P chloé Number [facility] [address] [place] [address] * TROPONIN-I (06/25/2021 2:00 AM CDT) Troponin-I 1.02 (H) 0.0 - 0.05 NG/ML [facility] Specimen Blood Performing Organization Address City/[facility]/ZIP Code P chloé Number [facility] [address] [place] [address] * TROPONIN-I (06/24/2021 5:35 PM CDT) Troponin-I 0.78 (H) 0.0 - 0.05 NG/ML [facility] Specimen Blood Performing Organization Address City/[facility]/ZIP Code P chloé Number [facility] [address] [place] [address] * TROPONIN-I (06/24/2021 11:11 AM CDT) Troponin-I 0.98 (H) 0.0 - 0.05 NG/ML [facility] Specimen Blood Performing Organization Address City/[facility] P chloé Number [facility]IN LAB [address] [place] [address] * TROPONIN-I (06/24/2021 9:47 AM CDT) Troponin-I 0.97 (H) 0.0 - 0.05 NG/ML [facility] Specimen Blood Performing Organization Address City/[facility]/ZIP Code P chloé Number [facility]IN LAB [address] [place] [address] * URINALYSIS, MICROSCOPIC (06/24/2021 5:29 AM CDT) WBCs,UA 20-50 0 - 2 /HPF [facility]IN LAB RBCs,UA PACKED 0 - 3 /HPF [facility] MucousUA TRACE [facility] Squamous 0-2 0 - 5 [facility] Epithelial Cells Specimen Urine - Urine Performing Organization Address [facility] P chloé Number [facility] [address] [place] [address] * URINALYSIS DIPSTICK (06/24/2021 5:29 AM CDT) Color,UA YELLOW [facility] Turbidity,UA 1+ (A) CLEAR-CLEAR [facility] Specific >1.050 (H) 1.003 - 1.035 [facility] [place]-Urine pH,UA 6.0 5.0 - 8.0 [facility] [...] Specimen Urine - Urine Performing Organization Address [facility] P chloé Number [facility] [address] [place] [phone] * PHENCYCLIDINES-URINE RANDOM (06/24/2021 5:29 AM CDT) Phencyclidine NEG NEG-NEG [facility] (PCP) Comment: RESULTS WERE OBTAINED BY IMMUNOASSAY AND ARE PRESUMPTIVE ONLY. POSITIVE INDICATES THE PRESENCE OF SUBSTANCE WITH CHARACTERISTICS SIMILAR TO DRUG-DRUG CLASS OR METABOLITE IN CONC. EQUAL TO OR EXCEEDING VALUES LISTED. PHENCYCLIDINE (PCP) 25 NG/ML Specimen Urine - Urine Performing Organization Address [facility] P chloé Number [facility] [address] [place] [address] * OPIATES-URINE RANDOM (06/24/2021 5:29 AM CDT) Opiates-Urine NEG NEG-NEG [facility] Comment: RESULTS WERE OBTAINED BY IMMUNOASSAY AND ARE PRESUMPTIVE ONLY. POSITIVE INDICATES THE PRESENCE OF SUBSTANCE WITH CHARACTERISTICS SIMILAR TO DRUG-DRUG CLASS OR METABOLITE IN CONC. EQUAL TO OR EXCEEDING VALUES LISTED. OPIATES 2000 NG/ML Specimen Urine - Urine Performing Organization Address [facility] P chloé Number [facility] [address] [place] [address] * COCAINE-URINE RANDOM (06/24/2021 5:29 AM CDT) Cocaine-Urine NEG NEG-NEG [facility] LAB Comment: RESULTS WERE OBTAINED BY IMMUNOASSAY AND ARE PRESUMPTIVE ONLY. POSITIVE INDICATES THE PRESENCE OF SUBSTANCE WITH CHARACTERISTICS SIMILAR TO DRUG-DRUG CLASS OR METABOLITE IN CONC. EQUAL TO OR EXCEEDING VALUES LISTED. COCAINE 300 NG/ML Specimen Urine - Urine Performing Organization Address [facility] P chloé Number MAIN LAB [address] [place] [address] * CANNABINOIDS-URINE RANDOM (06/24/2021 5:29 AM CDT) THC POS (A) NEG-NEG MAIN LAB Comment: RESULTS WERE OBTAINED BY IMMUNOASSAY AND ARE PRESUMPTIVE ONLY. POSITIVE INDICATES THE PRESENCE OF SUBSTANCE WITH CHARACTERISTICS SIMILAR TO DRUG-DRUG CLASS OR METABOLITE IN CONC. EQUAL TO OR EXCEEDING VALUES LISTED. CANNABINOIDS 50 NG/ML Specimen Urine - Urine Performing Organization Address [facility] P chloé Number MAIN LAB [address] [place] [address] * BENZODIAZEPINES-URINE RANDOM (06/24/2021 5:29 AM CDT) Benzodiazepines NEG NEG-NEG MAIN LAB Comment: RESULTS WERE OBTAINED BY IMMUNOASSAY AND ARE PRESUMPTIVE ONLY. POSITIVE INDICATES THE PRESENCE OF SUBSTANCE WITH CHARACTERISTICS SIMILAR TO DRUG-DRUG CLASS OR METABOLITE IN CONC. EQUAL TO OR EXCEEDING VALUES LISTED. BENZODIAZEPINES 200 NG/ML Specimen Urine - Urine Performing Organization Address [facility] P chloé Number MAIN LAB [address] [place] [address] * BARBITURATES-URINE RANDOM (06/24/2021 5:29 AM CDT) Barbiturates,Ur NEG NEG-NEG MAIN LAB ine Comment: RESULTS WERE OBTAINED BY IMMUNOASSAY AND ARE PRESUMPTIVE ONLY. POSITIVE INDICATES THE PRESENCE OF SUBSTANCE WITH CHARACTERISTICS SIMILAR TO DRUG-DRUG CLASS OR METABOLITE IN CONC. EQUAL TO OR EXCEEDING VALUES LISTED. BARBITURATES 200 NG/ML Specimen Urine - Urine Performing Organization Address [facility] P chloé Number [facility] MAIN LAB [address] [place] [address] * AMPHETAMINES-URINE RANDOM (06/24/2021 5:29 AM CDT) Pathologist [facility] [place] Amphetamines NEG NEG-NEG MAIN LAB Comment: RESULTS WERE OBTAINED BY IMMUNOASSAY AND ARE PRESUMPTIVE ONLY. POSITIVE INDICATES THE PRESENCE OF SUBSTANCE WITH CHARACTERISTICS SIMILAR TO DRUG-DRUG CLASS OR METABOLITE IN CONC. EQUAL TO OR EXCEEDING VALUES LISTED. AMPHETAMINES 1000 NG/ML Specimen Urine - Urine Performing Organization Address City/[facility] Code P chloé Number [facility] MAIN [facility] [address] [place] [address] * IONIZED CALCIUM (06/24/2021 5:20 AM CDT) Pathologist [facility] [place] Ionized Calcium 1.19 1.0 - 1.3 MMOL/L MAIN LAB Specimen Blood Performing Organization Address City/[facility] P chloé Number MAIN LAB [address] [place] [address] * FIBRINOGEN (06/24/2021 4:47 AM CDT) Pathologist [facility] [place] Fibrinogen 95 (LL) 200 - 400 MG/DL MAIN LAB Comment: CRITICAL VALUE CALLED TO AND READ BACK BY/TIME/TECH LASHAY DOMINGUEZ at 06/24/2021 05:48:38 by [id number] Specimen Blood Performing Organization Address City/[facility] P chloé Number MAIN LAB [address] [place] [address] * TROPONIN-I (06/24/2021 4:47 AM CDT) [facility] Troponin-I 1.06 (H) 0.0 - 0.05 NG/ML MAIN LAB Specimen Blood Performing Organization Address [facility] P chloé Number [facility] MAIN [facility] [address] [place] [phone] * MAGNESIUM (06/24/2021 4:47 AM CDT) Pathologist [facility] [place] Magnesium 1.9 1.6 - 2.6 mg/dL MAIN LAB Specimen Performing Organization Address [facility] P chloé Number MAIN LAB [address] [place] [address] * COMPREHENSIVE METABOLIC PANEL (06/24/2021 4:47 AM CDT) Pathologist [facility] [place] Sodium 139 137 - 147 MMOL/L MAIN LAB Potassium 4.0 3.5 - 5.1 MMOL/L [facility]IN [facility] Chloride 102 98 - 110 MMOL/L [facility] MAIN [facility] Glucose 87 70 - 100 MG/DL [facility] MAIN [facility] Blood Urea 14 7 - 25 MG/DL [facility] MAIN [facility] Nitrogen Creatinine 0.61 0.4 - 1.00 MG/DL [facility] MAIN [facility] Calcium 8.9 8.5 - 10.6 MG/DL [facility] MAIN [facility] Total Protein 6.3 6.0 - 8.0 G/DL [facility] MAIN [facility] Total Bilirubin 1.0 0.3 - 1.2 MG/DL [facility] MAIN [facility] Albumin 3.8 3.5 - 5.0 G/DL [facility] MAIN [facility] Alk Phosphatase 60 25 - 110 U/L [facility] MAIN [facility] AST (SGOT) 19 7 - 40 U/L [facility] MAIN [facility] CO2 27 21 - 30 MMOL/L [facility] MAIN [facility] ALT (SGPT) 10 7 - 56 U/L [facility]IN [facility] Anion Gap 10 3 - 12 [facility] MAIN LAB eGFR Non >60 >60 mL/min [facility] MAIN [facility] Comment: Chinese The eGFR is not validated f or use in drug dosing adjustments. Continue to use estimated creatinine clearance per dosing reference text. Please contact the Clinical Pharmacist for questions. eGFR >60 >60 mL/min [facility] MAIN [facility] Chinese Comment: The eGFR is not validated for use in drug dosing adjustments. Continue to use estimated creatinine clearance per dosing reference text. Please contact the Clinical Pharmacist for questions. Specimen Performing Organization Address City/State/ZIP Code P chloé Number [facility] MAIN [facility] [address] [place] [address] * CBC AND DIFF (06/24/2021 4:47 AM CDT) White Blood 9.1 4.5 - 11.0 K/UL [...] LAB Basophil Count Specimen Performing Organization Address City/State/ZIP Code P chloé Number [facility] MA[facility] [address] [place] [address] * CTA CHEST WO/W CONTRAST+POST P (06/24/2021 [...] left axillary, mediastinal, and left hilar lymphadenopathy. [employer] p revascular mediastinal lymph node measures 3.5 [...] left axillary, mediastinal, and left hilar lymphadenopathy. [employer] prevascular mediastinal lymph node measures 3.5 x [...] P chloé Number KU RAD RESULTS * CT ABD/PELV W CONTRAST (06/24/2021 1:19 [...] #FOLLOW Finalized by Seb Castano M.D. on 1:47 AM. Dictated by Seb Castano M.D. [...] left axillary, mediastinal, and left hilar lymphadenopathy. [employer] p revascular mediastinal lymph node measures 3.5 [...] left axillary, mediastinal, and left hilar lymphadenopathy. [employer] prevascular mediastinal lymph node measures 3.5 x [...] was performed. COMPARISON: External CTA head head 2020 FINDINGS: Moderate right MCA territory restricted [...] Dr. Epperson discussed these findings with Dr. Aalnis by telephone at 11:27 PM 06/23/2021 By my electronic signature, I attest that I have personally reviewed the images for this examination and formulated the interpretations and opinions expressed in this report Finalized by Kendell Holm M.D. on 06/24/2021 12:17 AM. Dictated by Nikolay Epperson MD on 06/23/2021 11:16 PM. Performing Organization Address [facility] P chloé Number KU RAD RESULTS * PARATHYROID HORMONE (06/23/2021 9:58 PM CDT) PTH Hormone 37.9 10 - 65 PG/ML [facility] MAIN LAB Specimen Performing Organization Address [facility] P chloé Number MAIN LAB [address] [place] [address] * PROCALCITONIN (06/23/2021 9:58 PM CDT) Procalcitonin 0.06 ng/mL [facility] MAIN [facility] Comment: Suspected Lower Respiratory Tract Infection: >0.25 ng/mL-Increased likeihood bacterial infection Suspected Sepsis: >0.5 ng/mL-Increased likelihood sepsis >2.0 ng/mL-High risk of sepsis/septic shock Specimen Performing Organization Address [facility] P chloé Number [facility] MAIN [facility] [address] [place] [address] * LIPASE (06/23/2021 9:58 PM CDT) Lipase 28 11 - 82 U/L [facility] MAIN LAB Specimen Performing Organization Address [facility] P chloé Number [facility] MAIN [facility] [address] [place] [address] * LDH-LACTATE DEHYDROGENASE (06/23/2021 9:58 PM CDT) Lactate 370 (H) 100 - 210 U/L [facility] MAIN [facility] Dehydrogenase Specimen Performing Organization [facility] P chloé Number MAIN LAB [address] [place] [address] * LACTIC ACID(LACTATE) (06/23/2021 9:58 PM CDT) Lactic Acid 0.8 0.5 - 2.0 MMOL/L [facility] MAIN [facility] Specimen Performing Organization Address [facility] P chloé Number MAIN LAB [address] [place] [address] * HIV-1/2 ANTIGEN/ANTIBODY SCREEN (06/23/2021 9:58 PM CDT) HIV 1 and 2 AG Non-Reactive: Negative for DMMTN-Iun-Iacejvkq: MAIN LAB AB Screen HIV-1 Ag and HIV-1/2 specific Negative for HIV-1 antibodies. Ag and HIV-1/2 specif Specimen Performing Organization Address [facility] P chloé Number MAIN LAB [address] [place] [id number] * C REACTIVE PROTEIN (CRP) (06/23/2021 9:58 PM CDT) C-Reactive 0.30 <1.0 MG/DL MAIN LAB Protein Specimen Performing Organization Address [facility] P chloé Number MAIN LAB [address] [place] [address] * BETA HYDROXYBUTYRATE (KETONES) (06/23/2021 9:58 PM CDT) Beta 0.4 (H) <0.3 MMOL/L MAIN LAB Hydroxybutyrate Comment: Beta hydroxybutyrate (BOHB) is the most abundant ketone (78%), followed by acetoacetate (20%) and acetone (2%). Measurement BOHB is recommended to assess ketones in DKA. Expected BOHB Results for DKA: Initial presentation high/increasing During treatment decreasing Resolved decreasing/normal Specimen Performing Organization Address [facility] P chloé Number MAIN LAB [address] [place] [address] * HEPATITIS PANEL, ACUTE (06/23/2021 9:58 PM CDT) Hepatitis A IgM Non-Reactive UDFG-Cxb-Twkncefy MAIN LAB Anti HBc IgM Non-Reactive: IgM antibodies RZY-Odz-Kwcxzmza: MAIN LAB to HBV core antigen (anti-HBc) IgM antibodies to were not detected. HBV core antigen (anti-H HBsAg Non-Reactive: HBs antigen not OOER-Ohi-Afqgpnn e: [facility] MAIN LAB detected HBs antigen not detected Anti HCV Non-Reactive: Antibodies to FRXLA-Src-Ywajubii : [facility] LAB HCV were not detected. Antibodies to HCV were not detected. Specimen Performing Organization Address City/[facility] Code P chloé Number [facility] MAIN [facility] [address] [place] [address] * C4 COMPLEMENT 4 (06/23/2021 9:58 PM CDT) Complemnt C4 41.0 10 - 49 MG/DL MAIN LAB Specimen Blood Performing Organization Address [facility] P chloé Number MAIN LAB [address] [place] [address] * C3 COMPLEMENT 3 (06/23/2021 9:58 PM CDT) Complemnt C3 150.0 88 - 200 MG/DL MAIN LAB Specimen Blood Performing Organization Address [facility] P chloé Number [facility] MAIN [facility] [address] [place] [address] * VITAMIN B12 (06/23/2021 9:58 PM CDT) Vitamin B12 387 180 - 914 PG/ML MAIN LAB Specimen Blood Performing Organization Address [facility] P chloé Number MAIN LAB [address] [place] [address] * D-DIMER (06/23/2021 9:58 PM CDT) D-Dimer [...] 10 ng/mL Specimen Blood Performing Organization Address [facility] P chloé Number MAIN LAB [address] [place] [address] * FIBRINOGEN (06/23/2021 9:58 PM CDT) Fibrinogen 89 (LL) 200 - 400 MG/DL [facility] MAIN LAB Comment: CRITICAL VALUE CALLED TO AND READ BACK BY/TIME/TECH LASHAY DOMINGUEZ at 06/23/2021 23:27:04 by [id number] Specimen Blood Performing Organization Address [facility]/ZIP Code P chloé Number [facility] MAIN [facility] [address] [place] [address] * PHOSPHORUS (06/23/2021 9:58 PM CDT) Phosphorus 3.5 2.0 - 4.5 MG/DL [facility] MAIN LAB Specimen Blood Performing Organization Address [facility] P chloé Number [facility] MAIN [facility] [address] [place] [address] * HEMOGLOBIN A1C (06/23/2021 9:58 PM CDT) Hemoglobin A1C 5.5 4.0 - 6.0 % [facility] MAIN LAB Comment: The ADA recommends that most patients with type 1 and type 2 diabetes maintain an A1c level <7%. Specimen Blood Performing Organization Address [facility] P chloé Number [facility] MAIN [facility] [address] [place] [address] * LIPID PROFILE (06/23/2021 9:58 PM CDT) [...] 130 mg/dL. Specimen Blood Performing Organization Address City/[facility]/ZIP Code P chloé Number [facility] MAIN [facility] [address] [place] [address] * TSH WITH FREE T4 REFLEX (06/23/2021 9:58 PM CDT) TSH 0.40 0.35 - 5.00 MCU/ML [facility] MAIN LAB Specimen Blood Performing Organization Address City/[facility]/ZIP Code P chloé Number [facility] MAIN [facility] [address] [place] [phone] * TROPONIN-I (06/23/2021 9:58 PM CDT) Troponin-I 0.97 (H) 0.0 - 0.05 NG/ML [facility] MAIN LAB Specimen Blood Performing Organization Address City/[facility]/ZIP Code P chloé Number [facility] MAIN [facility] [address] [place] [phone] * COMPREHENSIVE METABOLIC PANEL (06/23/2021 9:58 PM CDT) Pathologist [facility] [place] Sodium 140 137 - 147 MMOL/L [facility] MAIN LAB Potassium 4.0 3.5 - 5.1 MMOL/L [facility] MAIN [facility] Chloride 101 98 - 110 MMOL/L [facility] MAIN [facility] Glucose 88 70 - 100 MG/DL [facility] MAIN [facility] Blood Urea 13 7 - 25 MG/DL [facility] MAIN [facility] Nitrogen Creatinine 0.60 0.4 - 1.00 MG/DL [facility] MAIN [facility] Calcium 9.3 8.5 - 10.6 MG/DL [facility] MAIN [facility] Total Protein 7.1 6.0 - 8.0 G/DL [facility] MAIN [facility] Total Bilirubin 0.8 0.3 - 1.2 MG/DL [facility] MAIN [facility] Albumin 4.3 3.5 - 5.0 G/DL [facility] MAIN [facility] Alk Phosphatase 74 25 - 110 U/L [facility] MAIN [facility] AST (SGOT) 20 7 - 40 U/L [facility] MAIN [facility] CO2 27 21 - 30 MMOL/L [facility] MAIN [facility] ALT (SGPT) 12 7 - 56 U/L [facility] MAIN [facility] Anion Gap 12 3 - 12 [facility] MAIN LAB eGFR Non >60 >60 mL/min [facility] MAIN [facility] Comment: Chinese The eGFR is not validated f or use in drug dosing adjustments. Continue to use estimated creatinine clearance per dosing reference text. Please contact the Clinical Pharmacist for questions. eGFR >60 >60 mL/min [facility] MAIN [facility] Chinese Comment: The eGFR is not validated for use in drug dosing adjustments. Continue to use estimated creatinine clearance per dosing reference text. Please contact the Clinical Pharmacist for questions. Specimen Blood Performing Organization Address City/[facility]/ZIP Code P chloé Number [facility] MAIN [facility] [address] [place] [phone] * PTT (APTT) (06/23/2021 9:58 PM CDT) APTT 28.7 24.0 - 36.5 SEC [facility] MAIN LAB Specimen Blood Performing Organization Address City/[facility] Code P chloé Number [facility] MAIN [facility] [address] [place] [address] * PROTIME INR (PT) (06/23/2021 9:58 PM CDT) Pathologist [facility] [place] INR 1.2 0.8 - 1.2 [facility] MAIN LAB Specimen Blood Performing Organization Address [facility] P chloé Number [facility] MAIN [facility] [address] [place] [address] * CBC AND DIFF (06/23/2021 9:58 PM CDT) Pathologist [facility] [place] White Blood 9.7 4.5 - 11.0 K/UL [facility] MAIN [facility] Cells RBC 4.12 4.0 - 5.0 M/UL [facility] MAIN [facility] Hemoglobin 12.9 12.0 - 15.0 GM/DL [facility] MAIN LAB Hematocrit 36.8 36 - 45 % [facility] MAIN [facility] MCV 89.3 80 - 100 FL [facility] MAIN [facility] MCH 31.3 26 - 34 PG [facility] MAIN [facility] MCHC 35.0 32.0 - 36.0 G/DL [facility] MAIN [facility] RDW 13.2 11 - 15 % [facility] MA[facility] Platelet Count 151 150 - 400 K/UL [facility]IN [facility] MPV 7.7 7 - 11 FL [facility] Neutrophils 65 41 - 77 % [facility] Lymphocytes 23 (L) 24 - 44 % [facility] Monocytes 8 4 - 12 % [facility]IN [facility] Eosinophils 3 0 - 5 % [facility] MAIN [facility] Basophils 1 0 - 2 % [facility] MAIN [facility] Absolute 6.31 1.8 - 7.0 K/UL [facility] MAIN [facility] Neutrophil Count Absolute Lymph 2.23 1.0 - 4.8 K/UL [facility] MAIN [facility] Count Absolute 0.80 0 - 0.80 K/UL [facility] MAIN [facility] Monocyte Count Absolute 0.25 0 - 0.45 K/UL [facility] MAIN [facility] Eosinophil Count Absolute 0.07 0 - 0.20 K/UL [facility] MAIN LAB Basophil Count Specimen Blood Performing Organization Address [facility] P chloé Number [facility] MAIN LAB [address] [place] [address] * MRSA PNEUMONIA SCREEN (06/23/2021 9:15 PM CDT) Pathologist [facility] [place] MRSA Pneumonia NOT DETECTED [facility] MAIN LAB PCR The negative predictive hina ue of this assay for MRSA pneumonia is high. Discontinuation of anti-MRSA pneumonia therapy is recommended in patients without additional clinical features that warrant MRSA therapy. Contact infectious Diseases or Antimicrobial Stewardship with questions. Specimen Flocked Swab - Nasal Swab Performing Organization Address City/State/ZIP Code P chloé Number [facility] LAB [address] [place] [address] * COVID-19 (SARS-COV-2) PCR (06/23/2021 9:15 PM CDT) COVID-19 FLOCKED SWAB [facility] (SARS-CoV-2) NASOPHARYNGEAL PCR Source COVID-19 NOT DETECTED DN-NOT DETECTED [facility] (SARS-CoV-2) Comment: PCR This assay is [...] performance characteristics have been verified by the [facility]. Fact sheet for providers: https://www.fda.gov/media/5852 85/download Fact sheet for patients: https://www.fda.gov/media/3244 87/download Specimen Flocked Swab - Nasopharyngeal Performing Organization Address City/State/ZIP Code P chloé Number [facility] LAB [address] [place] [address] * TELEMETRY STRIPS-SCAN (06/23/2021 12:00 AM CDT) [...] ot available. Ordered by an unspecified provider. 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 documented in this encounter Administered Medications Action Date Dose Rate Site Medication Order MAR Action 06/24/2021 3:38 PM CDT 650 mg acetaminophen (TYLENOL) rectal Given suppository 650 mg 650 mg, Rectal, EVERY 4 HOURS PRN, Starting 06/23/21 at 204, Until Discontinued, Pain non-opioid: may be used alone or in combination with opioi d analgesia, TOTAL ACETAMINOPHEN DOSE NOT TO EXCEED 4GM DAILY, 06/23/2021 9:46 PM CDT 325 mg acetaminophen (TYLENOL) tablet 650 mg Given 650 mg, Oral, EVERY 6 HOURS PRN, Starting 06/23/21 at 2037, Until Discontinued, Pain non-opioid: may be used alone or in combination with opioi d analgesia, TOTAL ACETAMINOPHEN DOSE NOT TO EXCEED 4GM DAILY, albuterol-ipratropium (DUONEB) nebulize r solution 3 mL 3 mL, Inhalation, RT EVERY 4 HOURS PRN , Starting 06/24/21 at 1746, Until Discontinued, RT PROTOCOL, When administered by RT, will be per RT policy., 06/24/2021 9:00 AM CDT 300 mg aspirin rectal suppository 300 mg Given 300 mg, Rectal, DAILY, First dose on Sa t 06/23/21 at 2100, Until Discontinued 300 mg Given 06/24/2021 12:23 AM CDT atorvastatin (LIPITOR) tablet 40 mg 40 mg, Oral, DAILY, First dose on 06/23/21 at 2345, Until Discontinued, If patient can swallow safely. Or you can wait for ST., 06/24/2021 11:10 AM CDT 1 g cefTRIAXone (ROCEPHIN) IVP 1 g Given 1 g, Intravenous, EVERY 24 HOURS, First dose on 06/24/21 at 1045, Until Discontinued, INSTR: IV PUSH -- RECONSTITUTE EACH 1 GM WITH 10 MLS of 0.9% NACL (NS) or STERILE WATER (SW) or DEXTROSE 5% (D5W), enoxaparin (LOVENOX) syringe 40 mg 40 mg, Subcutaneous, DAILY, First dose on 06/23/21 at 2145, Until Discontinued, For patients undergoing surgery: Consult physician in advance - - enoxaparin is an anticoagulant and may need to be held for 12hr prior to surgery or invasive procedures. NOTE: This is a HIGH ALERT Medication., fentaNYL citrate PF (SUBLIMAZE) injection 12.5 mcg 12.5 mcg, Intravenous, EVERY 3 HOURS WHILE AWAKE PRN, Starting 06/23/21 at 2042, Until Discontinued, Pain Injectable, ONLY if acetaminophen fails., 06/25/2021 4:05 AM CDT 15 mg ketorolac (TORADOL) injection 15 mg Given 15 mg, Intravenous, EVERY 6 HOURS PRN, 4 doses, Starting 06/24/21 at 1657, Until 06/25/21 at 2359, Headache, Jeff n non-opioid: may be used alone or in combination with opioid analgesia, Please note: this medication will be automatically discontinued 5 days after ordered per hospital policy. Please obtain a new order if the medication needs to be continued., 15 mg Given 06/24/2021 5:27 PM CDT melatonin tablet 3 mg 3 mg, Oral, AT BEDTIME PRN, Starting Sa t 06/23/21 at 2037, Until Discontinued, Insomnia 06/25/2021 7:17 AM CDT 2.5 mg metoprolol (LOPRESSOR) injection 2.5 mg Given 2.5 mg, Intravenous, EVERY 8 HOURS, First dose on 06/23/21 at 2200, Until Discontinued, Hold for heart rate < 55 bpm or systolic BP < 120 PROTECT FROM LIGHT, 2.5 mg Given 06/24/2021 11:14 PM CDT 2.5 mg Given 06/24/2021 3:31 PM CDT 2.5 mg Given 06/24/2021 12:24 AM CDT 06/24/2021 6:49 PM CDT 1 patch Deltoid, Right nicotine (NICODERM CQ STEP 1) 21 mg/day Patch/Topica patch 1 patch l Applied 1 patch, Transdermal, Administer over 2 4 Hours, DAILY, First dose on 06/24/21 at 1815, Until Discontinued ondansetron (ZOFRAN ODT) rapid dissolve tablet 4 mg 4 mg, Oral, EVERY 6 HOURS PRN, Startin g 06/23/21 at 2036, Until Discontinued, Nausea/Vomiting PO, Place on tongue and allow to dissolve., 06/23/2021 9:46 PM CDT 4 mg ondansetron (ZOFRAN) injection 4 mg Given 4 mg, Intravenous, EVERY 6 HOURS PRN, Starting 06/23/21 at 2036, Until Discontinued, Nausea/Vomiting Injectabl e 06/24/2021 10:01 PM CDT 40 mg pantoprazole (PROTONIX) injection 40 mg Given 40 mg, Intravenous, TWICE DAILY, First dose (after last modification) on 06/24/21 at 2100, Until Discontinued polyethylene glycol 3350 (MIRALAX) packet 17 g 17 g (1 packet), Oral, DAILY PRN, Starting 06/23/21 at 2036, Until Discontinued, Constipation PO, 8.5 GRAM S = 0.5 PACKET 17 GRAMS = 1 PACKET 34 GRAMS = 2 PACKETS, 06/24/2021 9:00 AM CDT 50 mL/hr thiamine (VITAMIN B-1) 100 mg, folic Given - New acid 1 mg in sodium chloride 0.9% (NS) Bag 50 mL IVPB 50 mL, Intravenous, Administer over 60 Minutes, DAILY, First dose on Sat 1 at 2100, Until Discontinued, Give befor e giving IVF., 50 mL/hr Given - New Bag 06/24/2021 12:23 AM CDT Action Date Dose Rate Site Medication Order MAR Action 06/25/2021 7:00 AM CDT 25 mL DEXTROSE 50 % IN WATER (D50W) IV SYRG Given (Cabinet Override) NOW, 1 dose, 06/25/21 at 0700, Create d by cabinet override NOTE: This is a HIG H ALERT Medication., Created by cabinet override, 06/23/2021 10:30 PM CDT 10 mL gadobenate dimeglumine (MULTIHANCE) Given injection 10 mL 10 mL, Intravenous, ONCE, 1 dose, 06/23/21 at 2230, NOTE: This is a HIGH ALERT Medication., 06/24/2021 1:30 AM CDT 75 mL iopamidol 370 (ISOVUE-370) injection 75 Given mL 75 mL, Intravenous, ONCE, 1 dose, 06/24/21 at 0130, NOTE: This is a HIGH ALERT Medication., 06/24/2021 12:23 AM CDT 40 mg pantoprazole (PROTONIX) injection 40 mg Given 40 mg, Intravenous, DAILY, First dose o n 06/23/21 at 2200, Until Discontinued 06/24/2021 1:58 AM CDT 100 mL/hr sodium chloride 0.45 % infusion Given - New 1,000 mL, Intravenous, at 100 mL/hr, Bag CONTINUOUS, Starting 06/23/21 at 2100 , Until 06/24/21 at 0948 06/24/2021 1:30 AM CDT 50 mL sodium chloride PF 0.9% injection 50 mL Given 50 mL, Intravenous, ONCE, 1 dose, 06/24/21 at 0130, DO NOT SEND this medication unless it is requested. This med is usually available in floor stock., Intra-procedure (IR) documented in this encounter Orders First Ordered Date Medications Ordered That Might Not Have Count Last Ordered Date Been Administered DEXTROSE 50 % IN WATER (D50W) IV SYRG 1 06/25/2021 (Cabinet Override) albuterol-ipratropium (DUONEB) nebulizer 1 06/24/2021 solution 3 mL atorvastatin (LIPITOR) tablet 40 mg 1 dextrose 5 % & 0.45% NaCl infusion 2 enoxaparin (LOVENOX) syringe 40 mg 1 05/2021 fentaNYL citrate PF (SUBLIMAZE) 1 2020 injection 12.5 mcg melatonin tablet 3 mg 1 06/23/2021 ondansetron (ZOFRAN ODT) rapid dissolve 1 06/23/2021 tablet 4 mg polyethylene glycol 3350 (MIRALAX) 1 05/2021 packet 17 g First Ordered Date Diet Count Last Ordered Date DIET NPO 1 06/23/2021 First Ordered Date Nursing Count Last Ordered Date 06/23/2021 NEURO CHECKS 13 06/25/2021 IF PATCH CAUSES SLEEP DISTURBANCE, 1 06/2021 REMOVE AT NIGHT IMPLEMENT PLAN OF CARE 1 06/24/2021 06/23/2021 NOTIFY PHYSICIAN 2 06/24/2021 REMOVE STYLET 1 06/24/2021 SMOKING CESSATION EDUCATION 1 06/24/2021 IMPLEMENT ADULT ACTIVE SURVEILLANCE 1 PROTOCOL IMPLEMENT ADULT AND PEDIATRIC: SEASONAL 1 06/23/2021 INFLUENZA AND PNEUMOCOCCAL VACCINE SCREENING IMPLEMENT C DIFFICILE TESTING PROTOCOL 1 06/23/2021 IMPLEMENT COVID-19 VACCINE PROTOCOL 1 IMPLEMENT EMERGENT SITUATIONS, CARE OF 1 06/23/2021 THE ADULT PATIENT PROTOCOL IMPLEMENT GENERAL IV LINE FLUSH PROTOCOL 1 06/23/2021 IMPLEMENT HYPOGLYCEMIA MANAGEMENT OF 1 0 06/23/2021 ADULT PATIENTS PROTOCOL IMPLEMENT IMPAIRED SKIN INTEGRITY WOUND 1 06/23/2021 CARE AND MAINTENANCE IMPLEMENT MANAGEMENT OF THE ADULT AND 1 06/23/2021 ADOLESCENT PATIENT WITH KNOWN OR SUSPECTED OBSTRUCTIVE SLEEP APNEA (JUAN) PROTOCOL IMPLEMENT SLEEP PROMOTION IN ADULT 1 05/2021 INPATIENT UNITS PROTOCOL (EXCLUDING MATERNAL CHILD) IMPLEMENT STANDARD BED AND PRESSURE 1 RELIEF SURFACE SELECTION PROTOCOL IMPLEMENT SUICIDE PREVENTION PROTOCOL 1 06/23/2021 IMPLEMENT SUSPECTED TRANSFUSION REACTION 1 06/23/2021 PROTOCOL PERIPHERAL IV MAINTENANCE 1 06/23/2021 WEIGH PATIENT 1 06/23/2021 First Ordered Date Code Status Count Last Ordered Date FULL RESUSCITATION EFFORT (FULL CODE) 1 06/23/2021 First Ordered Date Consult Count Last Ordered Date CONSULT INTERVENTIONAL RADIOLOGY 2 06/24 PHYSICIAN CONSULT REHABILITATION MEDICINE 1 2020 PHYSICIAN CONSULT DIETITIAN 1 06/23/2021 CONSULT NEUROLOGY PHYSICIAN 1 06/23/2021 First Ordered Date OT Count Last Ordered Date OT CONSULT OCCUPATIONAL THERAPY 1 2020 First Ordered Date PT Count Last Ordered Date PT CONSULT PHYSICAL THERAPY 1 06/23/2021 First Ordered Date MID LEVEL GAME DESIGNER Count Last Ordered Date MID LEVEL GAME DESIGNER CONSULT CLINICAL BEDSIDE SWALLOW 1 0 06/23/2021 EVAL & [place] First Ordered Date Admission Count Last Ordered Date ADMIT TO INPATIENT (NO BED REQUEST) 1 First Ordered Date Equipment Count Last Ordered Date PUMP IV CONTROL UNIT W/MODULES 1 021 First Ordered Date Vital Signs Count Last Ordered Date VITAL SIGNS 1 06/23/2021 First Ordered Date Activity Count Last Ordered Date MOBILITY 1 06/23/2021 First Ordered Date Tube Feeding Count Last Ordered Date SMALL BORE FEEDING TUBE PLACEMENT 1 06/2021 First Ordered Date Smoking Cessation Count Last Ordered Date CONSULT FOR SMOKING CESSATION EDUCATION 1 06/24/2021 First Ordered Date NURSING NO COMPLETE Count Last Ordered Date ASPIRATION PRECAUTIONS 1 06/23/2021 First Ordered Date Nursing Task Count Last Ordered Date BEVERLY TUBE 1 06/24/2021 First Ordered Date Intake & Output Count Last Ordered Date INTAKE AND OUTPUT 1 06/23/[address] & Maintain Count Last Ordered Date PLACE AND MAINTAIN SCD 1 06/23/2021 First Ordered Date ADT Patient Update Count Last Ordered Date CHANGE SERVICE / LEVEL OF CARE (NO BED 4 06/24/2021 REQUEST) documented in this encounter Additional Health Concerns Assessment Noted Time A fall risk assessment has been completed for the pat ient 06/24/2021 11:42 PM CDT documented as of this encounter
== END 2021-06-23 18:44 | disposition short-term general hospital (02) ==
LOC: ER 12:06
DX: C79.31 Secondary malignant neoplasm of brain (principal)
CPT/HCPCS: 70450; 70496; 70498; 71045; 80053; 80306; 81000; 84484; 85025; 85379; 85610; 85730; 87088; 93005; 93041; 99285; G0480 ×3; 36415; 80320; 80329; 96374; 96375; 96376